=== PATIENT | male | born 1960 | race Caucasian/White ===

== ENCOUNTER → 2018-02-16 | Outpatient (CLI) | payer MEDICARE ==
[~2018-02-16] MED LIST: HYDR-1231 PO; HYDR-3456 PO; HYDR1CAP2 PO; HYDR1TAB PO; IBP800T PO
[2018-02-16 08:20] LABS: HEMOGLOBIN 15.9 G/DL (13.3-17.7); MEAN PLATELET VOLUME 10.6 FL (7.4-10.4); RED BLOOD COUNT 4.74 10^6/uL (4.35-5.85); RED CELL DISTRIBUTION WIDTH 13.4 % (10.0-14.5); WHITE BLOOD COUNT 7.9 10^3/uL (4.3-11.0)
[2018-02-16 08:37] LABS: ALANINE AMINOTRANSFERASE 51 U/L (0-55); ALBUMIN 4.3 GM/DL (3.2-4.5); ALKALINE PHOSPHATASE 60 U/L (40-136); BILIRUBIN,TOTAL 0.6 MG/DL (0.1-1.0); BUN/CREATININE RATIO 15; CALCIUM 9.3 MG/DL (8.5-10.1); CARBON DIOXIDE 22 MMOL/L (21-32); CHLORIDE 106 MMOL/L (98-107); CREATININE SERUM 0.97 MG/DL (0.60-1.30); GFR ESTIMATED > 60; GLUCOSE 99 MG/DL (70-105); POTASSIUM 3.7 MMOL/L (3.6-5.0); SODIUM 141 MMOL/L (135-145); TOTAL PROTEIN 6.5 GM/DL (6.4-8.2)
== END ==
LOC: LAB 08:03
PROVIDERS: ATTEND Family Medicine
DX: M19.90 Unspecified osteoarthritis, unspecified site (principal); R74.8 Abnormal levels of other serum enzymes
CPT/HCPCS: 36415; 80053; 85027

== ENCOUNTER → 2018-03-02 | Outpatient (CLI) | payer MEDICARE ==
--- NOTE | 2018-03-02 19:03 | Diagnostic Imaging Report ---
PROCEDURE: MRI lumbar spine. INDICATION: Chronic low back pain with bilateral leg pain and numbness. COMPARISON: Comparison made with prior examination from 01/28/2012. TECHNIQUE: Multiplanar and multisequence acquisitions were acquired through the lumbar spine without the use of gadolinium. FINDINGS: There is partial lumbarization of the S1 vertebral segment. There is no spondylolysis or spondylolisthesis. No fractures are identified. Conus medullaris is seen at L1 and is normal in appearance. Overall, the patient has congenitally small spinal canal. T12-L1 is unremarkable. L1-2 disc is unremarkable. At L2-3, there is some hypertrophic degenerative facet disease. At L3-4, there is some hypertrophic degenerative facet disease. At L4-5, there is loss of disc height and signal intensity with broad-based annular bulging. There is facet disease and thickening of the ligamentum flavum. There is moderate spinal stenosis and encroachment upon the lateral recess bilaterally, right greater than left. There is moderate bilateral neural foraminal encroachment. At L5-S1, there is some broad-based annular bulging and facet disease. There is mild central spinal stenosis with encroachment upon the lateral recess bilaterally, right greater than left. There is moderate right and mild left neural foraminal encroachment. The abdominal aorta is nonaneurysmal. The kidneys are unremarkable. IMPRESSION: Lower lumbar spondylosis and multilevel degenerative disc disease as described. Findings are exacerbated by congenitally small spinal canal. Dictated by: Dictated on workstation # [id number]
== END ==
LOC: RAD 18:04
PROVIDERS: ATTEND Family Medicine
DX: M48.07 Spinal stenosis, lumbosacral region (principal); M53.87 Other specified dorsopathies, lumbosacral region; M51.27 Other intervertebral disc displacement, lumbosacral region; M99.73 Connective tissue and disc stenosis of intervertebral foramina of lumbar region; M51.36 Other intervertebral disc degeneration, lumbar region
CPT/HCPCS: 72148

== ENCOUNTER → 2018-11-22 | Outpatient (CLI) | payer MEDICARE ==
[2018-11-22 12:21] LABS: HEMOGLOBIN 16.5 G/DL (13.3-17.7); MEAN PLATELET VOLUME 12.1 FL (7.4-10.4); RED CELL DISTRIBUTION WIDTH 13.8 % (10.0-14.5); WHITE BLOOD COUNT 10.7 10^3/uL (4.3-11.0)
[2018-11-22 12:30] LABS: BILIRUBIN,URINE NEGATIVE (NEGATIVE); CLARITY,URINE CLEAR; COLOR,URINE YELLOW; GLUCOSE, URINE (UA) NEGATIVE (NEGATIVE); KETONES,URINE NEGATIVE (NEGATIVE); LEUKOCYTE ESTERASE ,URINE NEGATIVE (NEGATIVE); NITRITE,URINE NEGATIVE (NEGATIVE); PH,URINE 6 (5-9); PROTEIN,URINE NEGATIVE (NEGATIVE); UROBILINOGEN,URINE NORMAL (NORMAL)
[2018-11-22 12:58] LABS: BACTERIA,URINE NEGATIVE /HPF; CALCIUM OXALATE CRYSTALS,UR RARE /LPF
[2018-11-22 13:48] LABS: ALANINE AMINOTRANSFERASE 41 U/L (0-55); ALBUMIN 4.5 GM/DL (3.2-4.5); ALKALINE PHOSPHATASE 77 U/L (40-136); BILIRUBIN,TOTAL 0.4 MG/DL (0.1-1.0); BUN/CREATININE RATIO 13; CALCIUM 9.4 MG/DL (8.5-10.1); CARBON DIOXIDE 22 MMOL/L (21-32); CHLORIDE 106 MMOL/L (98-107); CREATININE SERUM 0.93 MG/DL (0.60-1.30); GFR ESTIMATED > 60; GLUCOSE 89 MG/DL (70-105); POTASSIUM 3.8 MMOL/L (3.6-5.0); SODIUM 142 MMOL/L (135-145); TOTAL PROTEIN 7.4 GM/DL (6.4-8.2)
== END ==
LOC: LAB 06:52
PROVIDERS: ATTEND Family Medicine
DX: N40.0 Benign prostatic hyperplasia without lower urinary tract symptoms (principal); J44.9 Chronic obstructive pulmonary disease, unspecified; R42 Dizziness and giddiness; R53.83 Other fatigue
CPT/HCPCS: 36415; 80053; 81000; 84153; 85027

== ENCOUNTER → 2019-04-17 | Outpatient (CLI) | payer MEDICARE ==
--- NOTE | 2019-04-17 15:59 | Diagnostic Imaging Report ---
INDICATION: Cough and congestion x10 days EXAM: PA and lateral chest FINDINGS: Heart size and pulmonary vascularity are normal. Lungs are clear. There are no effusions or pneumothoraces. IMPRESSION: No acute abnormalities in the chest. Dictated by: Dictated on workstation # [id number]
== END ==
LOC: RAD 14:29
PROVIDERS: ATTEND Family Medicine
DX: R05 Cough (principal); R09.89 Other specified symptoms and signs involving the circulatory and respiratory systems
CPT/HCPCS: 71046

== ENCOUNTER 2019-04-23 09:30 | Outpatient (CLI) | payer MEDICARE ==
[~2019-04-23] VITALS: Ht 185 cm; Wt 95.4 kg
[2019-04-24] MEDS ORDERED: PANT40TA2 PO (15:39)
== END 2019-04-23 10:09 | disposition home or self-care (01) ==
LOC: PREOP 09:30
PROVIDERS: ATTEND Surgery
DX: Z01.818 Encounter for other preprocedural examination (principal)

== ENCOUNTER → 2019-04-24 | Day surgery (SDC) | payer MEDICARE ==
[~2019-04-24] VITALS: Ht 185.5 cm; Wt 95.4 kg
[~2019-04-24] MED LIST changes: +HURRICAINE EXT TUBE (BENZOCAINE) XX PRN; +LACTATED RINGERS 1,000 ML IV ONE; +LACTATED RINGERS 1,000 ML IV STA; +MIDAZOLAM 2 MG/2 ML (VERSED) VIAL ONE; +PANT40TA2 PO; +PROPOFOL INJECTION 50 ML IV ONE; +proPOfol 200 MG/20 ML (DIPRIVAN) VIAL IV ONE
[2019-04-24 12:32] VITALS: BP 128/94
--- NOTE | 2019-04-24 13:58 | Progress Note-Pre Operative ---
Pre-Operative Progress Note H&P Reviewed The H&P was reviewed, patient examined and no changes noted. Date Seen by Provider: Apr 24, 2019 Time Seen by Provider: 13:57 Date H&P Reviewed: Apr 24, 2019 Time H&P Reviewed: 13:57 Pre-Operative Diagnosis: + cologuard, family hx colon cancer and gerd SUSHANT PENA DO Apr 24, 2019 13:58 POS
[2019-04-24 15:15] VITALS: BP 112/71
[2019-04-24 15:20] VITALS: BP 115/72
[2019-04-24 15:25] VITALS: BP 129/73
[2019-04-24 15:30] VITALS: BP 129/73
--- NOTE | 2019-04-24 15:37 | Progress Note-Post Operative ---
Post-Operative Progess Note Surgeon (s)/Smelting Engineer (s) Surgeon SUSHANT PENA DO Smelting Engineer: NA Pre-Operative Diagnosis + cologuard, family hx colon cancer and gerd Post-Operative Diagnosis Small Hiatal Hernia Colon Polyps Procedure & Operative Findings Date of Procedure 04/24/19 Procedure Performed/Findings EGD with biopsies Colonoscopy with hot polypectomy x 4 and snare polypectomy x 7 Anesthesia Type per ACCOUNTING CONSULTANT Estimated Blood Loss Estimated blood loss (mL): None Specimens/Packing Specimens Removed Biopsies of the Antrum, Body of the stomach, Cardia and GE Junction Sigmoid Hot polypectomy x1 Descending Hot Polypectomy x1 Descending snare polypectomy x 2 Splenic flexure snare polypectomy x 1 Transverse snare polypectomy x 1 Transverse hot biopsy polypectomy x 1 Ascending hot biopsy polypectomy x 1 Ascending snare polypectomy x 3 SUSHANT PENA DO Apr 24, 2019 15:37 POS
--- NOTE | 2019-04-24 15:40 | Discharge Inst-Simple/Standard ---
Discharge Inst-Standard Discharge Medications New, Converted or Re-Newed RX: Transmitted to Pharmacy Patient Instructions/Follow Up Plan of Care/Instructions/FU: John 2 weeks Activity as Tolerated: Yes Discharge Diet: Regular Diet SUSHANT PENA DO Apr 24, 2019 15:40 POS
[2019-04-24 15:55] VITALS: BP 118/78
--- NOTE | 2019-04-24 16:18 | Anesthesia-General Post-Op ---
MAC Patient Condition Mental Status/LOC: Same as Preop Cardiovascular: Satisfactory Nausea/Vomiting: Absent Respiratory: Satisfactory Pain: Controlled Complications: Absent Post Op Complications Complications None Follow Up Care/Instructions Patient Instructions None needed. Anesthesiology Discharge Order Discharge Order Patient is doing well, no complaints, stable vital signs, no apparent adverse anesthesia problems. No complications reported per nursing. WANDA KOVACS CRNA Apr 24, 2019 16:18 POS
--- NOTE | 2019-04-25 01:05 | OPERATIVE REPORT ---
DATE OF SERVICE: 04/24/2019 PREOPERATIVE DIAGNOSES: Positive Cologuard test, family history of colon cancer and GERD. POSTOPERATIVE DIAGNOSES: Small hiatal hernia, colon polyps. PROCEDURE: EGD with biopsies, colonoscopy with hot biopsy polypectomy x4 and snare polypectomy x7. SURGEON: Sushant Lopez DO ANESTHESIA: Per DEPUTY SHERIFF BAILIFF. ESTIMATED BLOOD LOSS: None. COMPLICATIONS: None. INDICATIONS: The patient is a 58-year-old male with family history of colon cancer and positive Cologuard test. He also has reflux. He understands risks and benefits of procedures and he wished to proceed with procedures. Consent was signed in the chart. DESCRIPTION OF PROCEDURE: The patient was taken to the endoscopy suite, placed in the left lateral recumbent position. Timeout was performed. Scope was inserted in mouth, down the esophagus, stomach and into the duodenum without difficulty. Scope was inserted in mouth, down the esophagus, stomach and into the duodenum without difficulty. There were no polyps, masses or ulcerations in the duodenum. Scope was slowly retracted back into the stomach where further insufflated. Erythematous changes throughout the entire stomach were present. Biopsy of the antrum, body and cardia were obtained. No polyps, masses or ulcerations. Scope was then retroflexed noting a small hiatal hernia. Scope was returned to its normal position, slowly withdrawn to the distal esophagus, which biopsy of the GE junction was obtained. Scope was then slowly retracted back to completely remove noting no other pathology. Digital rectal exam was performed. There were no palpable polyps, masses or ulcerations. Scope was inserted into the rectum, advanced all the way to cecum with minimal difficulty. Prep was adequate. Scope was then slowly retracted back. There were no polyps, masses or ulcerations in the cecum. In the ascending colon, there were three polyps present, which snare polypectomy was performed. There was another polyp, which hot biopsy polypectomy was performed. Scope was then continued slowly retracted back into the transverse colon, which another polyp was present, in which hot biopsy polypectomy was performed. Another larger polyp was present, which snare polypectomy was performed. One polyp was present in the splenic flexure, which snare polypectomy was performed. Scope was continuously retracted back into the descending colon where two polyps were present and snare polypectomy was performed and on these 2 polyps, another polyp was present in the descending polyp, which hot biopsy polypectomy was performed. Scope was continuously retracted back into the sigmoid colon, which demonstrated another polyp, which hot biopsy polypectomy was performed. Scope was then slowly retracted back into the rectum and inserted and retracted multiple times noting no other pathology and scope was then slowly retracted until completely removed. RECOMMENDATIONS: The patient will follow up in the office in two to three weeks to go over pathology. We will also make sure that he is on Protonix 40 mg daily and await biopsy results. The patient will need repeat colonoscopy in 6 months. If he has any issues before that, will be seen at that time. Job ID: [id number] DocumentID: [id number] Dictated Date: 04/24/2019 15:38:09 Feed Manager Date: 04/25/2019 01:05:08 Dictated By: SUSHANT LOPEZ DO
== END ==
LOC: ENDO 12:10
PROVIDERS: ATTEND Surgery
DX: D12.2 Benign neoplasm of ascending colon (principal); D12.3 Benign neoplasm of transverse colon; D12.4 Benign neoplasm of descending colon; D12.5 Benign neoplasm of sigmoid colon; K44.9 Diaphragmatic hernia without obstruction or gangrene; K29.50 Unspecified chronic gastritis without bleeding; K21.9 Gastro-esophageal reflux disease without esophagitis; J44.9 Chronic obstructive pulmonary disease, unspecified; M06.9 Rheumatoid arthritis, unspecified; F17.210 Nicotine dependence, cigarettes, uncomplicated; Z80.0 Family history of malignant neoplasm of digestive organs
CPT/HCPCS: 88305

== ENCOUNTER 2019-09-04 05:37 | Outpatient (CLI) | payer MEDICARE ==
[~2019-09-04] VITALS: Ht 185 cm; Wt 95.0 kg
[~2019-09-04 05:37] MED LIST changes: -HURRICAINE EXT TUBE (BENZOCAINE) XX PRN; -LACTATED RINGERS 1,000 ML IV ONE; -LACTATED RINGERS 1,000 ML IV STA; -MIDAZOLAM 2 MG/2 ML (VERSED) VIAL ONE; -PROPOFOL INJECTION 50 ML IV ONE; -proPOfol 200 MG/20 ML (DIPRIVAN) VIAL IV ONE
== END 2019-09-04 13:39 | disposition home or self-care (01) ==
LOC: PREOP 05:37
PROVIDERS: ATTEND Surgery
DX: Z01.818 Encounter for other preprocedural examination (principal)

== ENCOUNTER → 2020-05-21 | Outpatient (CLI) | payer MEDICARE ==
[2020-05-21 10:06] LABS: HEMOGLOBIN 16.2 g/dL (13.3-17.7); MEAN PLATELET VOLUME 10.2 fL (9.0-12.2); WHITE BLOOD COUNT 7.2 10^3/uL (4.3-11.0)
[2020-05-21 10:24] LABS: ALANINE AMINOTRANSFERASE 37 U/L (0-55); ALBUMIN 4.3 GM/DL (3.2-4.5); ALKALINE PHOSPHATASE 76 U/L (40-136); BILIRUBIN,TOTAL 0.7 MG/DL (0.1-1.0); BUN/CREATININE RATIO 13; CALCIUM 8.8 MG/DL (8.5-10.1); CARBON DIOXIDE 27 MMOL/L (21-32); CHLORIDE 107 MMOL/L (98-107); CREATININE SERUM 1.12 MG/DL (0.60-1.30); GFR ESTIMATED > 60; GLUCOSE 103 MG/DL (70-105); SODIUM 143 MMOL/L (135-145); TOTAL PROTEIN 6.8 GM/DL (6.4-8.2)
== END ==
LOC: LAB 09:46
PROVIDERS: ATTEND Family Medicine
DX: K92.1 Melena (principal); K21.9 Gastro-esophageal reflux disease without esophagitis; R52 Pain, unspecified; Z72.0 Tobacco use
CPT/HCPCS: 36415; 80053; 85027

== ENCOUNTER 2020-06-20 11:34 | Outpatient (RCR) | payer MEDICARE, MEDICAID | END 2020-09-18 | disposition home or self-care (01) | LOC: LAB 11:34 | PROVIDERS: ATTEND Family Medicine | DX: K92.1 Melena (principal) | CPT/HCPCS: 82274 ==

== ENCOUNTER → 2020-09-16 | Outpatient (CLI) | payer MEDICARE, MEDICAID ==
--- NOTE | 2020-09-16 16:28 | Diagnostic Imaging Report ---
INDICATION: Fall with pain to the left wrist. TIME OF EXAM: 12:10 PM. TECHNIQUE: Three views of the left wrist were obtained. FINDINGS: The distal radius and ulna are intact. The carpus appears intact. No fractures are seen. IMPRESSION: No acute bony abnormality is detected. Dictated by: Dictated on workstation # [id number]
== END ==
LOC: RAD 11:46
PROVIDERS: ATTEND Family Medicine
DX: M25.532 Pain in left wrist (principal)
CPT/HCPCS: 73110

== ENCOUNTER → 2020-10-16 | Outpatient (CLI) | payer MEDICARE, MEDICAID ==
[2020-10-16 11:35] LABS: HEMATOCRIT 45 % (40-54); HEMOGLOBIN 15.4 g/dL (13.3-17.7); MEAN CORPUSCULAR HEMOGLOBIN 33 pg (25-34); MEAN CORPUSCULAR HGB CONC 35 g/dL (32-36); MEAN CORPUSCULAR VOLUME 96 fL (80-99); MEAN PLATELET VOLUME 10.6 fL (9.0-12.2); PLATELET COUNT 172 10^3/uL (130-400); WHITE BLOOD COUNT 7.2 10^3/uL (4.3-11.0)
[2020-10-16 12:04] LABS: ALANINE AMINOTRANSFERASE 31 U/L (0-55); ALKALINE PHOSPHATASE 91 U/L (40-136); BILIRUBIN,TOTAL 0.6 MG/DL (0.1-1.0); BUN/CREATININE RATIO 15; CALCIUM 8.3 MG/DL (8.5-10.1); CARBON DIOXIDE 27 MMOL/L (21-32); CHLORIDE 108 MMOL/L (98-107); CREATININE SERUM 0.81 MG/DL (0.60-1.30); GFR ESTIMATED > 60; GLUCOSE 102 MG/DL (70-105); POTASSIUM 3.8 MMOL/L (3.6-5.0); SODIUM 139 MMOL/L (135-145); TOTAL PROTEIN 6.3 GM/DL (6.4-8.2)
== END ==
LOC: LAB 11:09
PROVIDERS: ATTEND Family Medicine
DX: M54.9 Dorsalgia, unspecified (principal); R63.4 Abnormal weight loss
CPT/HCPCS: 36415; 80053; 84443; 85027

== ENCOUNTER → 2020-10-22 | Outpatient (CLI) | payer MEDICARE, MEDICAID ==
--- NOTE | 2020-10-22 14:45 | Diagnostic Imaging Report ---
EXAMINATION: CT chest without contrast. TECHNIQUE: Multiple contiguous axial images were obtained through the chest without the use of intravenous contrast. All CT scans use one or more of the following dose optimizing techniques: automated exposure control, MA and/or KvP adjustment based on patient size and exam type or iterative reconstruction. HISTORY: Weight loss. COMPARISON: CT chest 06/12/2014. FINDINGS: Thyroid: The thyroid is normal. Mediastinum: Heart size is normal without significant pericardial effusion. Mild aneurysmal dilatation of the ascending thoracic aorta measuring up to 4.0 cm. No suspicious lymphadenopathy. Lungs and airways: There are mild emphysematous changes of the lung apices. No consolidation, pleural effusion, or pneumothorax. There are a few subcentimeter nodules within both lungs which likely represent calcified granulomas. There is no other suspicious pulmonary lesion. The airways are normal. Upper abdomen: Hyperdense sludge or stones within the gallbladder neck and cystic duct. Subphrenic structures are otherwise unremarkable. Musculoskeletal: Degenerative changes of the spine without suspicious osseous lesion or compression fracture. There is a chronic left rib fracture. IMPRESSION: 1. No acute abnormality in the chest. No suspicious pulmonary lesion. 2. Borderline dilatation of the ascending thoracic aorta measuring up to 4.0 cm. 3. Mild emphysema. 4. Gallbladder sludge or stones within the cystic duct and gallbladder neck. Dictated by: Dictated on workstation # [id number]
== END ==
LOC: RAD 11:46
PROVIDERS: ATTEND Family Medicine
DX: J43.9 Emphysema, unspecified (principal); K82.8 Other specified diseases of gallbladder; R63.4 Abnormal weight loss
CPT/HCPCS: 71250

== ENCOUNTER 2020-11-27 05:38 | Outpatient (CLI) | payer MEDICARE, MEDICAID ==
[~2020-11-27] VITALS: Ht 185.4 cm; Wt 90.7 kg
[2020-11-28] MEDS ORDERED: MELO10CA3 PO (09:07)
[2020-11-28] MEDS ORDERED: PANT40TA52 PO (09:07)
== END 2020-12-01 09:19 | disposition home or self-care (01) ==
LOC: PREOP 05:38
PROVIDERS: ATTEND Surgery
DX: Z01.818 Encounter for other preprocedural examination (principal)

== ENCOUNTER 2020-12-04 05:50 | Day surgery (SDC) | payer MEDICARE, MEDICAID ==
[2020-12-04] VITALS (10 sets, daily range): BP systolic 119–169; BP diastolic 67–88
[~2020-12-04] VITALS: Ht 185.4 cm; Wt 90.7 kg
[~2020-12-04 05:50] MED LIST changes: +MELO10CA3 PO; +PANT40TA52 PO
[2020-12-04] MEDS: LACTATED RINGERS 1,000 ML IV PRN ×2 (06:20→09:23)
[2020-12-04] MEDS ORDERED: ONDANSETRON 4 MG/2 ML (SDV) Z0FRAN ONE (06:59)
[2020-12-04] MEDS ORDERED: ROCURONIUM 10 MG/ML 5 ML SYRINGE IV ONE (06:59)
[2020-12-04] MEDS ORDERED: GLYCOPYRROLATE 0.2 MG/ML (ROBINUL) 2 ML VIAL ONE (06:59)
[2020-12-04] MEDS ORDERED: LIDOCAINE PF 2% 5 ML (XYLOCAINE) VIAL ONE (06:59)
[2020-12-04] MEDS ORDERED: MIDAZOLAM 2 MG/2 ML (VERSED) VIAL ONE (06:59)
[2020-12-04] MEDS ORDERED: NEOSTIGMINE 3 MG/3 ML VIAL ONE (06:59)
[2020-12-04] MEDS ORDERED: fentaNYL INJ 100 MCG/2 ML AMP ONE (06:59)
[2020-12-04] MEDS ORDERED: proPOfol 200 MG/20 ML (DIPRIVAN) VIAL IV ONE (06:59)
[2020-12-04] MEDS ORDERED: LIDOCAINE/EPI 1%-1:100,000 (XYLOCAINE) 20ML ONE (07:37)
[2020-12-04] MEDS ORDERED: ceFAZolin 2 GM IV Premixed 50 ML ONE (08:00)
--- NOTE | 2020-12-04 08:04 | Progress Note-Pre Operative ---
Pre-Operative Progress Note H&P Reviewed The H&P was reviewed, patient examined and no changes noted. Date Seen by Provider: Dec 04, 2020 Time Seen by Provider: 07:51 Date H&P Reviewed: Dec 04, 2020 Time H&P Reviewed: 07:51 Pre-Operative Diagnosis: ruq abd pain, cholelithiasis SUSHANT PENA DO Dec 04, 2020 08:04
[2020-12-04] MEDS ORDERED: SEVOFLURANE (ULTANE) 15 ML INHAL SOLN ONE ×2 (09:03→09:04)
--- NOTE | 2020-12-04 09:13 | Progress Note-Post Operative ---
Post-Operative Progess Note Surgeon (s)/Senior Construction Project Manager (s) Surgeon SUSHANT PENA DO Senior Construction Project Manager: Dr. Harris to assist in retraction dissection closure Pre-Operative Diagnosis ruq abd pain, cholelithiasis Post-Operative Diagnosis cirrhotic liver, cholelithiasis chronic cholecystitis Procedure & Operative Findings Date of Procedure 12/04/20 Procedure Performed/Findings PROCEDURE: Laparoscopic cholecystectomy with intraoperative cholangiogram. COMPLICATIONS: None. PROCEDURE: The patient was taken to the operating suite and was prepped and draped in sterile fashion. A surgical pause was performed. Just superior to the umbilicus, a 12 mm incision was made. Dissection was taken down to the fascia, which was then scored and grasped with a Elias and the abdomen was then entered. A 0 Vicryl suture was placed in a nyqhaq-wh-vmael fashion and a Shaikh trocar was placed and secured. Pneumoperitoneum was achieved. A 5mm trochar place in the subxyphoid and 2 in the right upper quadrant. Adhesions to liver and gallbladder were taken down carefully. Liver cirrhotic appearance. The gallbladder was then grasped and elevated. The cystic duct, and cystic artery were then dissected out. Clip was placed on the distal portion of the cystic duct which was then partially transected. An arrow catheter was inserted into the duct. The cholangiogram was then performed. No filing defects and contrast made its way into the duodenum. Catheter removed. Clips were placed on proximal portion of the cystic duct and then the duct was then transected. Clips were placed along the proximal and distal portion of the cystic artery which was then transected. Hook cautery was used to dissect the gallbladder from the gallbladder fossa achieving hemostasis. The gallbladder was placed in an Endobag and removed through the 12 mm trocar site. The abdomen was then reinspected. Copious amounts of irrigation were used to irrigate the abdomen and there were no signs of active bleeding. Hemostasis had been achieved. The 12 mm fascial defect was then closed with 0 Vicryl suture that had been placed in a [id number]-rhcgn fashion. The abdomen was then desufflated, the trocars were removed. The abdomen was then washed and dried. The skin was then closed using 4-0 Monocryl in a subcuticular fashion. The abdomen was washed and dried and Skin Affix was place over incisions. Patient tolerated the procedure well without any complications and was taken to the recovery room in stable condition. Anesthesia Type general Estimated Blood Loss Estimated blood loss (mL): minimal Specimens/Packing Specimens Removed gallbladder SUSHANT PENA DO Dec 04, 2020 09:13
[2020-12-04] MEDS ORDERED: DOCU-143 PO ×2 (09:14→13:14)
[2020-12-04] MEDS ORDERED: ACHD5005 PO ×2 (09:14→13:14)
[2020-12-04] MEDS ORDERED: KETOROLAC 30 MG/ML VIAL ONE (09:16)
--- NOTE | 2020-12-04 09:16 | Discharge Inst-Simple/Standard ---
Discharge Inst-Standard Discharge Medications New, Converted or Re-Newed RX: Transmitted to Pharmacy Patient Instructions/Follow Up Plan of Care/Instructions/FU: 2-3 weeks John Activity as Tolerated: No Discharge Diet: Regular Diet Other Inst to Patient Follow up Appt: Make appointment for 2 weeks. Instructions: No lifting greater than 10 pounds. No strenuous activity. May shower in 24 hours, no tub bath or soaking. Use incentive spirometer at home as directed. No Smoking Skin/Wound Care: You have special glue over incision, it will fall off on it's own. Symptoms to Report: Appetite Changes, Extremity Discoloration, Numbness/Tingling, Swelling Increased, Bleeding Excessive, Eyesight Changes, Pain Increased, Urine Color Change, Constipation(Persistent), Fever over 101 degree F, Pain/Pressure in chest, Urinating Difficulty, Cough Up/Vomit Blood, Heart Beat Irreg/Pounding, Pain/Pressure in jaw, Vaginal Bleeding Increase, Cramps in feet or legs, Lightheadedness, Pain/Pressure in shoulder, Diarrhea(Persistent), Memory Changes Suddenly, Questions/Concerns, Weight gain consecutive days, Dizziness/Fainting, Nausea/Vomiting, Shortness of Breath, Weight gain over 2 pounds. If eyes or skin turn yellow notify physician. If questions or concerns contact your physician Or seek help at emergency department. SUSHANT PENA DO Dec 04, 2020 09:16
[2020-12-04] MEDS ORDERED: HYDROmorphone 2 MG/ML VIAL (DILAUDID) IV ONE (09:30)
[2020-12-04] MEDS ORDERED: ONDANSETRON 4 MG/2 ML (SDV) Z0FRAN IVP PRN (09:30)
--- NOTE | 2020-12-04 09:49 | Diagnostic Imaging Report ---
Indication: Fluoroscopy for intraoperative cholangiogram. Fluoroscopy was provided in the OR during intraoperative cholangiogram. 35 seconds fluoroscopic time was utilized. 119 images were obtained. Images demonstrate contrast being injected via the cystic duct remnant. There is opacification of extra hepatic bile duct which is of normal caliber. No filling defects are seen. There does appear to be some passage of contrast into the duodenum. No definite intrahepatic ductal opacification is seen. IMPRESSION: Fluoroscopy during intraoperative cholangio-gram. Dictated by: Dictated on workstation # [id number]
[2020-12-04] MEDS ORDERED: HYDROcodone/APAP 5 MG/325 MG (LORTAB) TAB PO ONE (10:45)
[2020-12-04] MEDS ORDERED: HYDROcodone/APAP 5 MG/325 MG (LORTAB) TAB ONE (10:45)
--- NOTE | 2020-12-04 10:58 | Anesthesia-General Post-Op ---
General Patient Condition Mental Status/LOC: Same as Preop Cardiovascular: Satisfactory Nausea/Vomiting: Absent Respiratory: Satisfactory Pain: Controlled Complications: Absent Post Op Complications Complications None Follow Up Care/Instructions Patient Instructions None needed. Anesthesia/Patient Condition Patient Condition Patient is doing well, no complaints, stable vital signs, no apparent adverse anesthesia problems. No complications reported per nursing. D/C home per [facility] [place] Criteria: Yes MARICRUZ SLADE CRNA Dec 04, 2020 10:58
== END 2020-12-04 11:45 | disposition home or self-care (01) ==
LOC: SDC 05:50
PROVIDERS: ATTEND Surgery
DX: K80.10 Calculus of gallbladder with chronic cholecystitis without obstruction (principal); K76.0 Fatty (change of) liver, not elsewhere classified; J44.9 Chronic obstructive pulmonary disease, unspecified; K21.9 Gastro-esophageal reflux disease without esophagitis; G43.909 Migraine, unspecified, not intractable, without status migrainosus; F17.210 Nicotine dependence, cigarettes, uncomplicated; Z79.899 Other long term (current) drug therapy
CPT/HCPCS: 76000; 87081

== ENCOUNTER → 2021-01-05 | Outpatient (CLI) | payer MEDICARE, MEDICAID ==
[~2021-01-05] MED LIST changes: +ACHD5005 PO; +DOCU-143 PO
[2021-01-05 11:40] LABS: HEMATOCRIT 48 % (40-54); HEMOGLOBIN 16.2 g/dL (13.3-17.7); MEAN CORPUSCULAR HEMOGLOBIN 33 pg (25-34); MEAN CORPUSCULAR HGB CONC 34 g/dL (32-36); MEAN CORPUSCULAR VOLUME 97 fL (80-99); MEAN PLATELET VOLUME 10.9 fL (9.0-12.2); PLATELET COUNT 165 10^3/uL (130-400); WHITE BLOOD COUNT 8.2 10^3/uL (4.3-11.0)
[2021-01-05 11:57] LABS: ALBUMIN 4.3 GM/DL (3.2-4.5); BILIRUBIN,TOTAL 0.5 MG/DL (0.1-1.0); CALCIUM 8.9 MG/DL (8.5-10.1); CREATININE SERUM 0.84 MG/DL (0.60-1.30); POTASSIUM 3.9 MMOL/L (3.6-5.0)
== END ==
LOC: LAB 11:21
PROVIDERS: ATTEND Family Medicine
DX: I63.9 Cerebral infarction, unspecified (principal)
CPT/HCPCS: 36415; 80053; 85027

== ENCOUNTER → 2021-01-05 | Outpatient (CLI) | payer MEDICARE, MEDICAID ==
--- NOTE | 2021-01-05 15:05 | Diagnostic Imaging Report ---
PROCEDURE: CT head without contrast. TECHNIQUE: Multiple contiguous axial images were obtained through the brain without the use of intravenous contrast. Auto Exposure Controls were utilized during the CT exam to meet ALARA standards for radiation dose reduction. INDICATION: Right eye and mouth drooping. FINDINGS: There is mild prominence of the ventricles and sulci. There is a focal lacunar infarct in the right basal ganglia. There is no hydrocephalus. There is no midline shift. There is no mass, hemorrhage, or extra-axial fluid collection. There is some chronic microvascular ischemic disease. There is a slightly more focal area of encephalomalacia in the left parietal lobe. The calvarium is intact. IMPRESSION: Atrophy and chronic microvascular ischemic disease with focal encephalomalacia in the left parietal lobe and a lacunar infarct in the right basal ganglia. No other acute intracranial abnormality. Dictated by: Dictated on workstation # [id number]
--- NOTE | 2021-01-05 15:46 | Diagnostic Imaging Report ---
PROCEDURE: US carotid duplex, bilateral. TECHNIQUE: Multiple real-time grayscale images were obtained over the carotid arteries in various projections, bilaterally. Additional spectral analysis and color Doppler duplex images were also obtained. INDICATION: Right eye and facial drooping. Smoking history. Examination of the carotid and vertebral arteries shows mild atherosclerotic disease with no significant vessel irregularity or stenosis seen. Maximal stenosis is less than 30%. There is antegrade flow in all vessels. IMPRESSION: Mild disease. No hemodynamically significant abnormality is seen. Parameters based on the consensus panel Douglas-Scale and Doppler ultrasound criteria published April 2003, Radiology, Volume 229. DOPPLER (peak systolic velocity M/S Right Left CCA .43 .46 ICA Proximal .41 .51 ICA Mid .63 .69 ICA Distal .80 1.08 RATIO 1.85 2.34 ECA .44 .56 VERT NOT SEEN NOT SEEN Dictated by: Dictated on workstation # [id number]
== END ==
LOC: RAD 12:50
PROVIDERS: ATTEND Family Medicine
DX: I67.82 Cerebral ischemia (principal); G31.9 Degenerative disease of nervous system, unspecified; G93.89 Other specified disorders of brain; Z87.891 Personal history of nicotine dependence
CPT/HCPCS: 70450; 93880

== ENCOUNTER → 2021-01-14 | Outpatient (CLI) | payer MEDICARE, MEDICAID ==
--- NOTE | 2021-01-14 12:57 | Diagnostic Imaging Report ---
PROCEDURE: MR imaging of the brain without contrast. TECHNIQUE: Multiplanar, multisequence MR imaging of the brain was performed without contrast. INDICATION: Weakness and right side. Right arm numbness. Possible stroke. COMPARISON: CT head without contrast 01/05/2021. FINDINGS: Subacute infarction continues to demonstrate restricted water diffusion in the left parietal lobe. This also demonstrates some T1 hyperintensity likely representing cortical laminar necrosis although small amount of subacute hemorrhage cannot be excluded. Chronic lacunar infarcts in the right basal ganglia and deep white matter of both frontal lobes. Moderate generalized parenchymal volume loss. Normal morphology including the major midline structures, sella, posterior fossa and cerebellar pontine angle. Normal intracranial flow voids. No hydrocephalus or extra-axial fluid collections. The orbits are negative. Paranasal sinuses and mastoids are clear. Normal bone marrow signal. IMPRESSION: 1. Subacute infarction in the left parietal lobe. T1 hyperintensity associated with this infarction is likely due to cortical laminar necrosis although small amount of hemorrhagic conversion cannot be entirely excluded. There is no mass effect or other evidence of intracranial hemorrhage. 2. Chronic lacunar infarcts in the right basal ganglia and deep white matter of both frontal lobes. Dictated by: Dictated on workstation # [id number]
== END ==
LOC: RAD 11:00
PROVIDERS: ATTEND Family Medicine
DX: I63.9 Cerebral infarction, unspecified (principal)
CPT/HCPCS: 70551

== ENCOUNTER 2021-03-16 07:19 | Emergency (ER) | payer MEDICARE, MEDICAID ==
[~2021-03-16] VITALS: Ht 185.5 cm; Wt 90.7 kg
[2021-03-16] MEDS ORDERED: KETOROLAC 30 MG/ML VIAL IVP STA (07:32)
[2021-03-16 07:38] LABS: BASOPHILS # (AUTO) 0.1 10^3/uL (0.0-0.1); BASOPHILS % (AUTO) 1 % (0-10); EOSINOPHILS # (AUTO) 0.1 10^3/uL (0.0-0.3); EOSINOPHILS % (AUTO) 0 % (0-10); HEMATOCRIT 49 % (40-54); HEMOGLOBIN 16.7 g/dL (13.3-17.7); LYMPHOCYTES # (AUTO) 1.5 10^3/uL (1.0-4.0); LYMPHOCYTES % (AUTO) 11 % (12-44); MEAN CORPUSCULAR HEMOGLOBIN 34 pg (25-34); MEAN CORPUSCULAR HGB CONC 34 g/dL (32-36); MEAN CORPUSCULAR VOLUME 98 fL (80-99); MEAN PLATELET VOLUME 10.3 fL (9.0-12.2); MONOCYTES # (AUTO) 0.8 10^3/uL (0.0-1.0); MONOCYTES % (AUTO) 6 % (0-12); NEUTROPHILS % (AUTO) 82 % (42-75); PLATELET COUNT 209 10^3/uL (130-400); WHITE BLOOD COUNT 13.4 10^3/uL (4.3-11.0)
[2021-03-16] MEDS ORDERED: LACTATED RINGERS 1,000 ML IV ONE ×3 (07:45→08:30)
[2021-03-16] MEDS ORDERED: ONDANSETRON 4 MG/2 ML (SDV) Z0FRAN IVP ONE (07:45)
[2021-03-16 07:48] LABS: ALBUMIN 4.6 GM/DL (3.2-4.5); CHLORIDE 105 MMOL/L (98-107); POTASSIUM 3.9 MMOL/L (3.6-5.0); SODIUM 142 MMOL/L (135-145)
[2021-03-16 07:49] LABS: AMYLASE 82 U/L (25-125)
[2021-03-16 07:50] LABS: CALCIUM 9.7 MG/DL (8.5-10.1)
[2021-03-16 07:51] LABS: GLUCOSE 140 MG/DL (70-105); TOTAL PROTEIN 7.4 GM/DL (6.4-8.2)
[2021-03-16 07:52] LABS: CARBON DIOXIDE 22 MMOL/L (21-32)
[2021-03-16 07:53] LABS: BILIRUBIN,TOTAL 0.6 MG/DL (0.1-1.0)
--- NOTE | 2021-03-16 07:53 | ED Abdominal Pain ---
General Chief Complaint: Abdominal/GI Problems Stated Complaint: ABD,LOWER BACK PAIN Nursing Triage Note: PT AMB TO RM 6 WITH COMPLAINT OF LEFT SIDED PAIN. STARTED LAST NIGHT. STATES HAS HX OF KIDNEY STONES. Source of Information: Patient History of Present Illness Date Seen by Provider: Mar 16, 2021 Time Seen by Provider: 07:27 Initial Comments PT ARRIVES VIA POV FROM HOME C/O LEFT FLANK PAIN--BEGAN SOMETIME LAST NIGHT C/O NAUSEA AND VOMITING NO FEVER HAS NOT BEEN ABLE TO VOID SINCE SOMETIME LAST EVENING HAS HISTORY OF KIDNEY STONE AND THIS IS THE SAME, DID NOT REQUIRE SURGERY STATES HE DID FOLLOW UP WITH UROLOGIST AFTER THAT, BUT NOT SINCE PT HAD A STROKE APPROXIMATELY 1 1/2 MONTHS AGO, WITH RESIDUAL RIGHT ARM/HAND WEAKNESS, AND RIGHT FACIAL DROOP--RIGHT EYELID REMAINS CLOSED PT IS NOT ON ASPIRIN OR ANY BLOOD THINNERS PT HAS NOT TAKEN ANYTHING FOR PAIN PCP: DR. KHALIL Allergies and Home Medications Allergies Coded Allergies: aspirin (Verified Allergy, Mild, N/V, 12/01/20) Patient Home Medication List Home Medication List Reviewed: Yes Docusate Sodium (Colace) 100 Mg Capsule, 100 MG PO BID Prescribed by: SUSHANT PENA on 12/04/20 1314 Hydrocodone Bit/Acetaminophen (HYDROcodone/APAP 7.5/325 TAB) 1 Ea Tablet, 1 EA PO Q4-6 PRN for PAIN Prescribed by: MYRANDA HERZOG on 03/16/21 0821 Hydrocodone/Acetaminophen (Hydrocodone-Acetamin 5-325 mg) 1 Each Tablet, 1 EACH PO Q4H PRN for PAIN-MODERATE (5-7) Prescribed by: SUSHANT PENA on 12/04/20 1315 Ketorolac Tromethamine (Ketorolac Tromethamine) 10 Mg Tablet, 10 MG PO Q6H Prescribed by: MYRANDA HERZOG on 03/16/21 0821 Ondansetron (Ondansetron Odt) 8 Mg Tab.rapdis, 8 MG PO Q6H Prescribed by: MYRANDA HERZOG on 03/16/21 08 Pantoprazole Sodium (Pantoprazole Sodium) 40 Mg Tablet.dr, 40 MG PO DAILY, (Reported) Entered as Reported by: ANMOL CARY on 11/28/20 0907 Tamsulosin HCl (Flomax) 0.4 Mg Cap, 0.4 MG PO DAILY Prescribed by: MYRANDA HERZOG on 03/16/21 0821 Review of Systems Review of Systems Constitutional: no symptoms reported Respiratory: No Symptoms Reported Cardiovascular: No Symptoms Reported Gastrointestinal: See HPI, Abdominal Pain, Nausea Genitourinary: See HPI, Flank Pain Musculoskeletal: see HPI, back pain Skin: no symptoms reported Psychiatric/Neurological: No Symptoms Reported Endocrine: No Symptoms Reported Hematologic/Lymphatic: No Symptoms Reported Past Slgvlhn-Moisex-Ifnuca Hx Patient Social History Tobacco Use?: Yes Tobacco type used: Cigarettes Smoking Status: Current Everyday Smoker Substance use?: Yes Alcohol Use?: Yes Immunizations Up To Date Tetanus Booster (TDap): Unknown PED Vaccines UTD: No Seasonal Allergies Seasonal Allergies: No Past Medical History Surgery/Hospitalization HX: CHOLECYSTECTOMY 12/04/[address] PENA LEFT CHEST TUBE 10/2010 SECONDARY TO TRAUMA BILATERAL CARPAL TUNNEL SURGERY X 2 CERVICAL SPINE SURGERY FINGER SURGERY COLONOSCOPIES Surgeries: Yes (BILAT CARPAL TUNNEL X2, NECK, FINGER, COLONOSCOPIES) Gallbladder, Orthopedic Respiratory: Yes (LEFT CHEST TUBE 2010 SECONDARY TO TRAUMA) Currently Using CPAP: No Currently Using BIPAP: No Cardiac: No Neurological: Yes (? 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) Headaches /Migraines, Neuropathy Reproductive Disorders: No Sexually Transmitted Disease: No HIV/AIDS: No Genitourinary: No Gastrointestinal: Yes (S/P CHOLECYSTECTOMY) Gastroesophageal Reflux, Chronic Constipation, Gall Bladder Disease Musculoskeletal: Yes (CHRONIC NECK/ BACK PAIN; HIP AND LEG PAIN; SHOULDER PAIN; L FOOT FX;GWEN CT) Arthritis Endocrine: No HEENT: No Loss of Vision: Denies Hearing Impairment: Denies Cancer: No Psychosocial: Yes (POLYSUBSTANCE ABUSE) Integumentary: No Blood Disorders: No Adverse Reaction/Blood Tranf: No (N/A) Family Medical History SOCIAL HISTORY: -SMOKES 3 PPD -ETOH--HEAVY/DAILY USE--CLAIMS NO RECENT USE -DRUGS--+ IV METH, COCAINE, HEROIN, ALSO THC, RX PILLS Physical Exam Vital Signs Vital Signs - First Documented 03/16/21 07:25 Temp 35.9 Pulse 62 Resp 17 B/P (MAP) 185/85 (118) Pulse Ox 99 O2 Delivery Room Air Capillary Refill : Less Than 3 Seconds Height/Weight/BMI Height: 6'1" Weight: 220lbs. oz. 99.245221ge; 26.00 BMI Method:Stated General Appearance: no apparent distress HEENT: other (RIGHT FACIAL DROOP AND RIGHT EYE REMAINS CLOSED) Neck: normal inspection Respiratory: normal breath sounds Cardiovascular: regular rate, rhythm, no murmur Gastrointestinal: normal bowel sounds, soft, no organomegaly, tenderness (LLQ AND LEFT FLANK MILD TENDERNESS) Extremities: normal inspection, other (SCARRING IN AC SPACES) Back: no vertebral tenderness, CVA tenderness (L) Neurologic/Psychiatric: alert, oriented x 3, other (RIGHT FACIAL DROOP WITH RIGHT EYE CLOSED, AND MILD WEAKNESS OF RIGHT HAND/ARM) Skin: normal color, warm/dry; No rash; tattoos/piercings (MULTIPLE TATTOOS) Progress/Results/Core Measures Results/Orders Lab Results Laboratory Tests Test 03/16/21 07:32 03/16/21 09:08 Range/Units White Blood Count 13.4 H 4.3-11.0 10^3/uL Red Blood Count 4.98 4.30-5.52 10^6/uL Hemoglobin 16.7 13.3-17.7 g/dL Hematocrit 49 40-54 % Mean Corpuscular Volume 98 80-99 fL Mean Corpuscular Hemoglobin 34 25-34 pg Mean Corpuscular Hemoglobin Concent 34 32-36 g/dL Red Cell Distribution Width 13.5 10.0-14.5 % Platelet Count 209 130-400 10^3/uL Mean Platelet Volume 10.3 9.0-12.2 fL Immature Granulocyte % (Auto) 1 % Neutrophils (%) (Auto) 82 H 42-75 % Lymphocytes (%) (Auto) 11 L 12-44 % Monocytes (%) (Auto) 6 0-12 % Eosinophils (%) (Auto) 0 0-10 % Basophils (%) (Auto) 1 0-10 % Neutrophils # (Auto) 11.0 H 1.8-7.8 10^3/uL Lymphocytes # (Auto) 1.5 1.0-4.0 10^3/uL Monocytes # (Auto) 0.8 0.0-1.0 10^3/uL Eosinophils # (Auto) 0.1 0.0-0.3 10^3/uL Basophils # (Auto) 0.1 0.0-0.1 10^3/uL Immature Granulocyte # (Auto) 0.1 0.0-0.1 10^3/uL Sodium Level 142 135-145 MMOL/L Potassium Level 3.9 3.6-5.0 MMOL/L Chloride Level 105 98-107 MMOL/L Carbon Dioxide Level 22 21-32 MMOL/L Anion Gap 15 H 5-14 MMOL/L Blood Urea Nitrogen 16 7-18 MG/DL Creatinine 1.18 0.60-1.30 MG/DL Estimat Glomerular Filtration Rate 63 BUN/Creatinine Ratio 14 Glucose Level 140 H 70-105 MG/DL Calcium Level 9.7 8.5-10.1 MG/DL Corrected Calcium 8.5-10.1 MG/DL Total Bilirubin 0.6 0.1-1.0 MG/DL Aspartate Amino Transf (AST/SGOT) 43 H 5-34 U/L Alanine Aminotransferase (ALT/SGPT) 59 H 0-55 U/L Alkaline Phosphatase 111 40-136 U/L Total Protein 7.4 6.4-8.2 GM/DL Albumin 4.6 H 3.2-4.5 GM/DL Amylase Level 82 25-125 U/L Lipase 41 8-78 U/L Serum Alcohol < 10 <10 MG/DL Urine Color YELLOW Urine Clarity CLEAR Urine pH 6.0 5-9 Urine Specific [place] >=1.030 1.016-1.022 Urine Protein NEGATIVE NEGATIVE Urine Glucose (UA) NEGATIVE NEGATIVE Urine Ketones NEGATIVE NEGATIVE Urine Nitrite NEGATIVE NEGATIVE Urine Bilirubin NEGATIVE NEGATIVE Urine Urobilinogen 0.2 < = 1.0 MG/DL Urine Leukocyte Esterase NEGATIVE NEGATIVE Urine RBC (Auto) TRACE-L H NEGATIVE Urine RBC 5-10 H /HPF Urine WBC NONE /HPF Urine Squamous Epithelial Cells NONE /HPF Urine Crystals NONE /LPF Urine Bacteria NEGATIVE /HPF Urine Casts NONE /LPF Urine Mucus NEGATIVE /LPF Urine Culture Indicated NO Urine Opiates Screen NEGATIVE NEGATIVE Urine Oxycodone Screen NEGATIVE NEGATIVE Urine Methadone Screen NEGATIVE NEGATIVE Urine Propoxyphene Screen NEGATIVE NEGATIVE Urine Barbiturates Screen NEGATIVE NEGATIVE Ur Tricyclic Antidepressants Screen NEGATIVE NEGATIVE Urine Phencyclidine Screen NEGATIVE NEGATIVE Urine Amphetamines Screen NEGATIVE NEGATIVE Urine Methamphetamines Screen NEGATIVE NEGATIVE Urine Benzodiazepines Screen NEGATIVE NEGATIVE Urine Cocaine Screen NEGATIVE NEGATIVE Urine Cannabinoids Screen POSITIVE H NEGATIVE My Orders Orders - MYRANDA HERZOG DO Ct Abd/Pelvis Wo(Kidney Stone) (03/16/21 07:32) Amylase (03/16/21 07:32) Cbc With Automated Diff (03/16/21 07:32) Comprehensive Metabolic Panel (03/16/21 07:32) Lipase (03/16/21 07:32) Urinalysis (03/16/21 07:32) Ed Iv/Invasive Line Start (03/16/21 07:32) Abdomen/Kub 1[place] (03/16/21 07:32) Ed Iv/Invasive Line Start (03/16/21 07:32) Lactated Ringers (Lr 1000 Ml Iv Solution (03/16/21 07:45) Ondansetron Injection (Zofran Injectio (03/16/21 07:45) Ketorolac Injection (Toradol Injection) (03/16/21 07:32) Alcohol (03/16/21 07:53) Drug Screen Stat (Urine) (03/16/21 07:53) Tamsulosin Capsule (Flomax Capsule) (03/16/21 08:15) Fentanyl Inj (Sublimaze Injection) (03/16/21 08:16) Ed Iv/Invasive Line Start (03/16/21 08:24) Lactated Ringers (Lr 1000 Ml Iv Solution (03/16/21 08:30) Lactated Ringers (Lr 1000 Ml Iv Solution (03/16/21 08:26) Medications Given in ED Current Medications Medications Dose Ordered Sig/[place] Route Start Time Stop Time Status Last Admin Dose Admin Lactated Ringer's 1,000 ml @ 0 mls/hr Q0M ONCE IV 03/16/21 07:45 03/16/21 07:46 DC 03/16/21 07:39 0 MLS/HR Lactated Ringer's 1,000 ml @ 0 mls/hr Q0M ONCE IV 03/16/21 08:30 03/16/21 08:31 DC 03/16/21 08:27 0 MLS/HR Ondansetron HCl 4 mg ONCE ONCE IVP 03/16/21 07:45 03/16/21 07:46 DC 03/16/21 07:39 4 MG Vital Signs/I&O 03/16/21 07:25 Temp 35.9 Pulse 62 Resp 17 B/P (MAP) 185/85 (118) Pulse Ox 99 O2 Delivery Room Air Blood Pressure Mean: 118 Progress Progress Note : Progress Note GIVEN IV FLUIDS, TORADOL, ZOFRAN, FENTANYL AND FLOMAX SYMPTOMS MUCH IMPROVED AT DISMISSAL Diagnostic Imaging Comments KUB--[place] RADIOLOGIST [place] AT [address] earlier this same date. A faintly visualized 2 to 3 mm calcification of the left hemipelvis believed to correspond to the stone in the distal left ureter seen at CT. No additional opaque stone disease. The bowel gas pattern normal. There are degenerative changes chronic. IMPRESSION: Faint visualization of a distal left ureteral stone radiographically, no other abnormality. CT ABDOMEN/PELVIS--PER RADIOLOGIST REPORT AT 0835 It is compared with CT chest and abdomen performed 06/12/2014. A 2.9 mm obstructing stone in the distal left ureter is less than 1 cm from the ureterovesical junction and results in mild to moderate upstream left-sided hydroureteronephrosis with moderate left perinephric and periureteric stranding. No defined fluid collection no additional opaque urinary tract calculi. The gallbladder surgically absent. Small hypodensity is developed in the left hepatic lobe measuring about 1.5 cm in diameter. This is new from the comparison CT of 2014 but is of uncertain etiology. Follow-up of mild multiphasic hepatic protocol CT recommended for its further characterization. Pancreas and spleen are normal. There is mild infrarenal aortic atherosclerotic ectasia is a new finding dilating to 2.7 cm, unruptured. There is no small or large bowel obstruction the appendix is normal. There is no diverticulitis. The unopacified urinary bladder normal. No ascites, abscess, hematoma or acute fluid collection. IMPRESSION: 1. A 2.9 mm stone distal left ureter results in mild to moderate upstream left hydroureteronephrosis with perinephric and periureteric stranding, no additional opaque urolithiasis. 2. Small mass is developed in the left hepatic lobe new from 2015 of uncertain etiology. Further characterization with a hepatic protocol postcontrast enhanced imaging recommended. 3. Infrarenal aortic atherosclerotic ectasia 2.7 cm unruptured, consider annual sonographic followup to exclude formation of significant aneurysm. Reviewed: Reviewed by Me Departure Impression Primary Impression: Calculus of distal left ureter Additional Impressions: Liver mass Abdominal aortic ectasia Marijuana use Disposition: HOME, SELF-CARE Condition: Improved Departure-Patient Inst. Referrals: FANNIE KHALIL ELIAS A MD Patient Instructions: Kidney Stones in Adults, How to Strain Your Urine Add. Discharge Instructions: STRAIN ALL URINE--RETURN ANY STONES TO DR. RAYA'S OFFICE LOTS OF CLEAR LIQUIDS FOLLOW UP WITH DR. RAYA THIS WEEK FOR FURTHER CARE. CALL TODAY TO SCHEDULE FOLLOW UP APPOINTMENT FOLLOW UP WITH DR. KHALIL FOR FURTHER EVALUATION OF LIVER MASS AND ABDOMINAL AORTA ABNORMALITY. CALL TODAY TO SCHEDULE FOLLOW UP APPOINTMENT RETURN TO ER IF WORSE All discharge instructions reviewed with patient and/or family. Voiced understanding. Scripts Ondansetron (Ondansetron Odt) 8 Mg Tab.rapdis 8 MG PO Q6H, #10 TAB Prov: MYRANDA HERZOG DO 03/16/21 Tamsulosin HCl (Flomax) 0.4 Mg Cap 0.4 MG PO DAILY, #10 CAP Prov: MYRANDA HERZOG DO 03/16/21 Ketorolac Tromethamine (Ketorolac Tromethamine) 10 Mg Tablet 10 MG PO Q6H for Pain, #15 TAB Prov: MYRANDA HERZOG DO 03/16/21 Hydrocodone Bit/Acetaminophen (HYDROcodone/APAP 7.5/325 TAB) 1 Ea Tablet 1 EA PO Q4-6 PRN for PAIN, #20 TAB Prov: MYRANDA HERZOG DO 03/16/21 MYRANDA HERZOG DO Mar 16, 2021 07:52
[2021-03-16 07:54] LABS: ALKALINE PHOSPHATASE 111 U/L (40-136); CREATININE SERUM 1.18 MG/DL (0.60-1.30); GFR ESTIMATED 63
[2021-03-16 07:55] LABS: BUN/CREATININE RATIO 14
[2021-03-16 07:57] LABS: ALANINE AMINOTRANSFERASE 59 U/L (0-55)
[2021-03-16 07:58] LABS: LIPASE 41 U/L (8-78)
[2021-03-16] MEDS ORDERED: TAMSULOSIN 0.4 MG (FLOMAX) CAP PO SCH (08:15)
[2021-03-16] MEDS ORDERED: fentaNYL INJ 100 MCG/2 ML AMP IVP STA (08:16)
[2021-03-16] MEDS ORDERED: TMSL.4C PO (08:21)
[2021-03-16] MEDS ORDERED: HYDR-34 PO (08:21)
[2021-03-16] MEDS ORDERED: KETO10TA PO (08:21)
[2021-03-16] MEDS ORDERED: ONDA8TAB13 PO (08:21)
--- NOTE | 2021-03-16 08:33 | Diagnostic Imaging Report ---
PROCEDURE: CT urinary tract, rule out kidney stone. TECHNIQUE: Multiple contiguous axial images were obtained through the abdomen and pelvis without the use of intravenous contrast. Auto Exposure Controls were utilized during the CT exam to meet ALARA standards for radiation dose reduction. INDICATION: Left flank pain, history of nephrolithiasis. It is compared with CT chest and abdomen performed 06/12/2014. A 2.9 mm obstructing stone in the distal left ureter is less than 1 cm from the ureterovesical junction and results in mild to moderate upstream left-sided hydroureteronephrosis with moderate left perinephric and periureteric stranding. No defined fluid collection no additional opaque urinary tract calculi. The gallbladder surgically absent. Small hypodensity is developed in the left hepatic lobe measuring about 1.5 cm in diameter. This is new from the comparison CT of 2014 but is of uncertain etiology. Follow-up of mild multiphasic hepatic protocol CT recommended for its further characterization. Pancreas and spleen are normal. There is mild infrarenal aortic atherosclerotic ectasia is a new finding dilating to 2.7 cm, unruptured. There is no small or large bowel obstruction the appendix is normal. There is no diverticulitis. The unopacified urinary bladder normal. No ascites, abscess, hematoma or acute fluid collection. IMPRESSION: 1. A 2.9 mm stone distal left ureter results in mild to moderate upstream left hydroureteronephrosis with perinephric and periureteric stranding, no additional opaque urolithiasis. 2. Small mass is developed in the left hepatic lobe new from 2015 of uncertain etiology. Further characterization with a hepatic protocol postcontrast enhanced imaging recommended. 3. Infrarenal aortic atherosclerotic ectasia 2.7 cm unruptured, consider annual sonographic followup to exclude formation of significant aneurysm. Dictated by: Dictated on workstation # [id number]
--- NOTE | 2021-03-16 08:36 | Diagnostic Imaging Report ---
INDICATION: Left flank pain. Correlate with CT earlier this same date. A faintly visualized 2 to 3 mm calcification of the left hemipelvis believed to correspond to the stone in the distal left ureter seen at CT. No additional opaque stone disease. The bowel gas pattern normal. There are degenerative changes chronic. IMPRESSION: Faint visualization of a distal left ureteral stone radiographically, no other abnormality. Dictated by: Dictated on workstation # [id number]
[2021-03-16 09:15] LABS: BILIRUBIN,URINE NEGATIVE (NEGATIVE); CLARITY,URINE CLEAR; COLOR,URINE YELLOW; GLUCOSE, URINE (UA) NEGATIVE (NEGATIVE); KETONES,URINE NEGATIVE (NEGATIVE); LEUKOCYTE ESTERASE ,URINE NEGATIVE (NEGATIVE); NITRITE,URINE NEGATIVE (NEGATIVE); PROTEIN,URINE NEGATIVE (NEGATIVE)
[2021-03-16 09:22] LABS: BACTERIA,URINE NEGATIVE /HPF
[2021-03-16 09:34] LABS: AMPHETAMINE SCREEN, URINE NEGATIVE (NEGATIVE); BARBITURATE SCREEN URINE NEGATIVE (NEGATIVE); BENZODIAZEPINES SCREEN URINE NEGATIVE (NEGATIVE); CANNABINOID SCREEN, URINE POSITIVE (NEGATIVE); COCAINE SCREEN URINE NEGATIVE (NEGATIVE); METHADONE STAT NEGATIVE (NEGATIVE); METHAMPHETAMINE SCREEN URINE S NEGATIVE (NEGATIVE); OPIATE SCREEN URINE NEGATIVE (NEGATIVE); OXYCODONE STAT NEGATIVE (NEGATIVE); PROPOXYPHENE STAT NEGATIVE (NEGATIVE); TRICYCLIC ANTIDEPRESSANTS SCRE NEGATIVE (NEGATIVE)
[2021-03-16 09:37] VITALS: BP 123/76
== END 2021-03-16 09:37 | disposition home or self-care (01) ==
LOC: EDUNIT# 07:19 → ER 07:20
DX: N13.2 Hydronephrosis with renal and ureteral calculous obstruction (principal); R16.0 Hepatomegaly, not elsewhere classified; I77.811 Abdominal aortic ectasia; F12.90 Cannabis use, unspecified, uncomplicated; K21.9 Gastro-esophageal reflux disease without esophagitis; G89.29 Other chronic pain; M54.9 Dorsalgia, unspecified; M54.2 Cervicalgia; F17.210 Nicotine dependence, cigarettes, uncomplicated; Z79.899 Other long term (current) drug therapy; Z79.891 Long term (current) use of opiate analgesic
CPT/HCPCS: 74018; 74176; 80053; 80306; 81000; 82150; 83690; 85025; 99284; G0480; 36415; 80320

== ENCOUNTER → 2021-03-24 | Outpatient (CLI) | payer MEDICARE, MEDICAID ==
[~2021-03-24] MED LIST changes: +HYDR-34 PO; +KETO10TA PO; +ONDA8TAB13 PO; +TMSL.4C PO
[2021-03-24 11:33] LABS: CREATININE SERUM 0.9 MG/DL (0.60-1.30)
== END ==
LOC: LAB 10:54
PROVIDERS: ATTEND Family Medicine
DX: N28.9 Disorder of kidney and ureter, unspecified (principal)
CPT/HCPCS: 36415; 82565; 84520

== ENCOUNTER → 2021-03-24 | Outpatient (CLI) | payer MEDICARE, MEDICAID ==
[~2021-03-24] MED LIST changes: +CATHETER FLUSH 10 ML SYR IV PRN; +HOLD METFORMIN - RECEIVED CONTRAST 20 ML VIAL IV SCH; +IOHEXOL 350 MG/ML 100 ML (OMNIPAQUE 350) VIAL IV ONE; +NS 100 ML (IVPB) BAG IV ONE
--- NOTE | 2021-03-24 16:10 | Diagnostic Imaging Report ---
PROCEDURE: CT abdomen and pelvis with and without contrast. TECHNIQUE: Precontrast acquisitions were acquired through the abdomen and pelvis. Multiple contiguous axial images were obtained through the abdomen and pelvis after the administration of intravenous contrast. Auto Exposure Controls were utilized during the CT exam to meet ALARA standards for radiation dose reduction. INDICATION: Liver mass 03/16/2021, 06/12/2014. FINDINGS: Again seen is a low-density lesion within the left hepatic lobe of the liver which is unchanged in size, shape and configuration. The lesion does not appear to enhance on the arterial phase, therefore it is doubtful this is a metastatic or malignant lesion. The lesion becomes iso-dense to surrounding liver parenchyma on the portal venous phase. The remainder of the liver, vascular structures, bowel and solid organs are unremarkable. Urinary bladder is intact. Left-sided hydronephrosis has resolved. IMPRESSION: Indeterminant left hepatic lobe liver lesion. No avid enhancement is seen on early phase imaging that would indicate neoplasm. A low density solitary metastatic lesion or atypical hemangioma is a differential possibility. Ultrasound is recommended for additional evaluation. If ultrasound is inconclusive, a three-phase MRI may be obtained. Dictated by: Dictated on workstation # [id number]
== END ==
LOC: RAD 15:02
PROVIDERS: ATTEND Family Medicine
DX: R16.0 Hepatomegaly, not elsewhere classified (principal)
CPT/HCPCS: 74178

== ENCOUNTER 2021-03-25 09:26 | Outpatient (RCR) | payer MEDICARE, MEDICAID ==
[~2021-03-25 09:26] MED LIST changes: -CATHETER FLUSH 10 ML SYR IV PRN; -HOLD METFORMIN - RECEIVED CONTRAST 20 ML VIAL IV SCH; -IOHEXOL 350 MG/ML 100 ML (OMNIPAQUE 350) VIAL IV ONE; -NS 100 ML (IVPB) BAG IV ONE
== END 2021-03-25 12:45 | disposition home or self-care (01) ==
PROVIDERS: ATTEND Family Medicine
DX: I69.398 Other sequelae of cerebral infarction (principal); I69.351 Hemiplegia and hemiparesis following cerebral infarction affecting right dominant side; R26.89 Other abnormalities of gait and mobility; J43.9 Emphysema, unspecified; F17.210 Nicotine dependence, cigarettes, uncomplicated; Z98.1 Arthrodesis status

== ENCOUNTER → 2021-03-26 | Outpatient (CLI) | payer MEDICARE, MEDICAID ==
--- NOTE | 2021-03-26 13:43 | Diagnostic Imaging Report ---
EXAMINATION: Abdomen 1 view HISTORY: Left ureteral calculus COMPARISON: 03/16/2021 FINDINGS: There is a moderate amount of gas and stool throughout the colon. Nonobstructive bowel gas pattern. Stable appearance of a 0.3 cm radiopacity overlying the distal left pelvis likely within the left ureter. Right upper quadrant cholecystectomy clips are present. The osseous structures are intact. IMPRESSION: Stable 0.3 cm radiopacity within the pelvis, likely left ureteral calculus. Dictated by: Dictated on workstation # [id number]
== END ==
LOC: RAD 11:57
PROVIDERS: ATTEND Urology
DX: N20.1 Calculus of ureter (principal)
CPT/HCPCS: 74018

== ENCOUNTER → 2021-03-27 | Outpatient (CLI) | payer MEDICARE, MEDICAID ==
--- NOTE | 2021-03-27 09:31 | Diagnostic Imaging Report ---
PROCEDURE: US Hepatic (Liver). TECHNIQUE: Multiple real-time grayscale images were obtained over the right upper quadrant in various projections. INDICATION: Liver mass noted on recent CT. CORRELATION is made with CT study from 03/24/2021. The liver is enlarged at 23 cm. There is a hypoechoic mass in the left lobe of the liver measuring 1.9 x 1.3 x 1.7 cm. No internal vascularity is seen. There is also a mass in the right lobe measuring 1.6 x 1.4 x 1.4 cm. No internal vascularity is seen. This is hypoechoic as well. Gallbladder is surgically absent. There is no biliary ductal dilatation. The pancreas is unremarkable. Aorta is ectatic but nonaneurysmal. Right kidney is without calculi or hydronephrosis. There is no ascites. IMPRESSION: There are 2 solid-appearing masses within the liver which could not be characterized as hemangiomas. Dedicated liver MRI would be recommended for further characterization. Dictated by: Dictated on workstation # [id number]
== END ==
PROVIDERS: ATTEND Family Medicine
DX: R16.0 Hepatomegaly, not elsewhere classified (principal)
CPT/HCPCS: 76705

== ENCOUNTER → 2021-04-02 | Outpatient (CLI) | payer MEDICARE, MEDICAID ==
--- NOTE | 2021-04-02 12:55 | Diagnostic Imaging Report ---
PROCEDURE: CT urinary tract, rule out kidney stone. TECHNIQUE: Multiple contiguous axial images were obtained through the abdomen and pelvis without the use of intravenous contrast. Auto Exposure Controls were utilized during the CT exam to meet ALARA standards for radiation dose reduction. INDICATION: Left ureteral stone. FINDINGS: The previous CT abdomen/pelvis exam of 03/16/2021 noted partial obstruction of the left collecting system due to a 2.9 mm calculus in the distal left ureter. There was dilatation of both the left ureter and left renal pelvis and there was considerable perinephric stranding about the left kidney. The subsequent CT abdomen/pelvis exam of 03/24/2021 noted that the calculus was still present but that the hydronephrosis of the left kidney and the perinephric stranding had essentially resolved. On this exam, the calcification in the distal left ureter seen previously is again visualized and does not appear to have changed significantly in position or appearance. The left renal pelvis is perhaps slightly dilated but the left ureter is generally unremarkable. The right kidney is within normal limits. The previous study also showed a 1.3 cm rounded area of low density in the left lobe of the liver. There was a second smaller 1 cm area of low density in the left lateral aspect of the left lobe of the liver. Those findings are again evident on this study and do not appear to have changed significantly. I suspect that these are benign such as a hemangioma. They were not clearly present on the prior CT chest, abdomen, and pelvis exam of 06/12/2014. I would concur with the recommendation of the hepatic ultrasound exam performed on 03/27/2021 that an MRI of the liver be obtained to better characterize these findings. There is no acute abnormality in the abdomen noted otherwise. The lung bases are clear. The bone windows are unremarkable for a fracture or for a destructive lesion. IMPRESSION: 1. The obstructive calculus in the distal left ureter seen previously is again evident and does not appear to have changed significantly in size or appearance. There is still no evidence for obstruction of the left collecting system, however. 2. There is no acute abnormality in the abdomen or pelvis noted otherwise. 3. The small areas of diminished density in the left lobe of the liver are of uncertain etiology although most likely benign. Recommendations as above. Dictated by: Dictated on workstation # [id number]
== END ==
LOC: RAD 13:45
PROVIDERS: ATTEND Urology
DX: N20.1 Calculus of ureter (principal); K76.89 Other specified diseases of liver
CPT/HCPCS: 74176

== ENCOUNTER → 2021-04-02 | Outpatient (CLI) | payer MEDICARE, MEDICAID ==
[~2021-04-02] MED LIST changes: +GADOTERATE 0.5 MMOL/ML (CLARISCAN) 15 ML VIAL IV ONE
--- NOTE | 2021-04-02 14:13 | Diagnostic Imaging Report ---
EXAMINATION: MRI of the abdomen with and without contrast. TECHNIQUE: Multiplanar, multisequence MR images of the abdomen were obtained with and without intravenous contrast. HISTORY: Liver mass. COMPARISON: CT dated 04/02/2021. FINDINGS: The liver is normal size. There is iron deposition in the liver. There are four liver lesions. The most easily characterized is in segment II and measures 15 mm. It is T2 intermediate in signal and T1 hyperintense with no discernible change in appearance on the contrast images. No surface nodularity. The gallbladder is normal. There is no biliary ductal dilation. Pancreas is normal. The pancreatic duct is normal. Spleen is normal. Adrenal glands are normal. There is a cyst in the right kidney. There is no hydronephrosis. Visualized bowel is normal. No lymphadenopathy is seen. Lung bases are clear. No osseous lesions are seen. IMPRESSION: 1. Liver lesions remain indeterminate as they have an unusual signal characteristics of T2 intermediate signal and T1 hyperintense signal with no change with contrast. Differential includes atypical hemangioma, sequelae of prior hemorrhage or infection, and metastatic disease, particularly from a T1 hyperintense malignancy such as melanoma. Options include close follow-up, biopsy, or PET/CT to attempt to identify a primary malignancy. Dictated by: Dictated on workstation # [id number]
== END ==
LOC: RAD 11:54
PROVIDERS: ATTEND Family Medicine
DX: R16.0 Hepatomegaly, not elsewhere classified (principal)
CPT/HCPCS: 74183

== ENCOUNTER 2021-04-06 14:04 | Outpatient (CLI) | payer MEDICARE, MEDICAID ==
[~2021-04-06] VITALS: Ht 185.5 cm; Wt 92.3 kg
[~2021-04-06 14:04] MED LIST changes: -PHEN-640 PO; -SULF1TAB38 PO
[2021-04-07] MEDS ORDERED: SULF1TAB38 PO (11:11)
[2021-04-07] MEDS ORDERED: PHEN-640 PO (11:11)
[2021-04-07] MEDS ORDERED: KETO10TA PO (11:11)
== END 2021-04-06 14:31 | disposition home or self-care (01) ==
LOC: PREOP 14:04
PROVIDERS: ATTEND Urology
DX: Z01.818 Encounter for other preprocedural examination (principal)

== ENCOUNTER → 2021-04-06 | Outpatient (CLI) | payer MEDICARE, MEDICAID ==
[~2021-04-06] MED LIST changes: -GADOTERATE 0.5 MMOL/ML (CLARISCAN) 15 ML VIAL IV ONE; +PHEN-640 PO; +SULF1TAB38 PO
--- NOTE | 2021-04-06 13:05 | Diagnostic Imaging Report ---
INDICATION: History of distal left ureteral calculus. COMPARISON: 03/26/2021. FINDINGS: Two supine radiographic views of the abdomen were obtained and show interval resolution of the previously described calculus projecting over the left hemipelvis. No unexpected extraosseous calcifications or radiopaque foreign bodies are seen on today's exam. The small bowel loops are nondistended. There is no large collection of free intraperitoneal air. The osseous structures show age-related degenerative changes. IMPRESSION: 1. Interval resolution of the previously described distal left ureteral calculus. 2. Nonobstructed small bowel gas pattern. Dictated by: Dictated on workstation # [id number]
== END ==
LOC: RAD 12:25
PROVIDERS: ATTEND Urology
DX: N20.1 Calculus of ureter (principal)
CPT/HCPCS: 74018

== ENCOUNTER 2021-04-07 07:57 | Day surgery (SDC) | payer MEDICARE, MEDICAID ==
[~2021-04-07] VITALS: Ht 185.5 cm; Wt 92.3 kg
[2021-04-07] VITALS (10 sets, daily range): BP systolic 108–139; BP diastolic 64–82
--- NOTE | 2021-04-07 08:05 | Progress Note-Pre Operative ---
Pre-Operative Progress Note H&P Reviewed The H&P was reviewed, patient examined and no changes noted. Date Seen by Provider: Apr 07, 2021 Time Seen by Provider: 08:05 Date H&P Reviewed: Apr 07, 2021 Time H&P Reviewed: 08:05 Pre-Operative Diagnosis: LT URETERAL STONE PIEDAD RAYA MD Apr 07, 2021 08:05
[2021-04-07] MEDS ORDERED: cefTRIAXone 1,000 MG in WATER (STERILE) FOR INJECTION 10 ML IV ONE (08:15)
[2021-04-07] MEDS ORDERED: fentaNYL INJ 100 MCG/2 ML AMP ONE (08:34)
[2021-04-07] MEDS ORDERED: LIDOCAINE PF 2% 5 ML (XYLOCAINE) VIAL ONE (08:34)
[2021-04-07] MEDS ORDERED: proPOfol 200 MG/20 ML (DIPRIVAN) VIAL IV ONE (08:34)
[2021-04-07 08:35] LABS: AMPHETAMINE SCREEN, URINE NEGATIVE (NEGATIVE); BARBITURATE SCREEN URINE NEGATIVE (NEGATIVE); BENZODIAZEPINES SCREEN URINE NEGATIVE (NEGATIVE); CANNABINOID SCREEN, URINE POSITIVE (NEGATIVE); COCAINE SCREEN URINE NEGATIVE (NEGATIVE); METHADONE STAT NEGATIVE (NEGATIVE); METHAMPHETAMINE SCREEN URINE S NEGATIVE (NEGATIVE); OPIATE SCREEN URINE NEGATIVE (NEGATIVE); OXYCODONE STAT NEGATIVE (NEGATIVE); PROPOXYPHENE STAT NEGATIVE (NEGATIVE); TRICYCLIC ANTIDEPRESSANTS SCRE NEGATIVE (NEGATIVE)
[2021-04-07] MEDS ORDERED: MIDAZOLAM 2 MG/2 ML (VERSED) VIAL ONE (08:35)
--- NOTE | 2021-04-07 08:36 | Diagnostic Imaging Report ---
INDICATION: History of ureteral calculus. Status post ESWL. COMPARISON: 04/06/2021 FINDINGS: Single frontal radiograph view the abdomen was obtained. Small bowel loops are nondistended. There is no large collection of free intraperitoneal air. No unexpected extraosseous calcifications or radiopaque foreign bodies are seen. Osseous structures show age-related degenerative changes. IMPRESSION: 1. Nonobstructive small bowel gas pattern. Dictated by: Dictated on workstation # [id number]
[2021-04-07] MEDS: LACTATED RINGERS 1,000 ML IV PRN ×3 (08:47→09:31)
--- NOTE | 2021-04-07 08:49 | Progress Note-Post Operative ---
Post-Operative Progess Note Surgeon (s)/Film Color Tester (s) Surgeon PIEDAD RAYA MD Film Color Tester: NONE Pre-Operative Diagnosis LT URETERAL STONE Post-Operative Diagnosis SAME Procedure & Operative Findings Date of Procedure 04/07/21 Procedure Performed/Findings LT URETEROSCOPY WITH STONE BASKET AND RETROGRADE UROGRAM Anesthesia Type GENERAL Estimated Blood Loss Estimated blood loss (mL): NONE Specimens/Packing Specimens Removed NONE Packing: NONE PIEDAD RAYA MD Apr 07, 2021 08:49
--- NOTE | 2021-04-07 08:50 | Discharge Inst-Urology ---
Discharge Inst-Urology Reconcile Patient Problems Problems Reviewed?: Yes Final Diagnosis LT DISTAL URETERAL STONE Patient Instructions/Follow Up Plan/Assessment/Instructions Please make appointment to been seen in office in 4 weeks. Increase oral fluids for 48 hours and then as needed. Diet and Activity as tolerated. If questions or concerns contact your physician Or seek help at emergency department. PIEDAD RAYA MD Apr 07, 2021 08:50
[2021-04-07] MEDS ORDERED: KETOROLAC 30 MG/ML VIAL ONE (09:56)
[2021-04-07] MEDS ORDERED: SEVOFLURANE (ULTANE) 15 ML INHAL SOLN ONE (09:56)
[2021-04-07] MEDS ORDERED: FUROSEMIDE 40 MG/4 ML INJ (LASIX) ONE (09:56)
[2021-04-07] MEDS ORDERED: ONDANSETRON 4 MG/2 ML (SDV) Z0FRAN ONE (09:56)
--- NOTE | 2021-04-07 10:26 | Anesthesia-General Post-Op ---
General Patient Condition Mental Status/LOC: Same as Preop Cardiovascular: Satisfactory Nausea/Vomiting: Absent Respiratory: Satisfactory Pain: Controlled Complications: Absent Post Op Complications Complications None Follow Up Care/Instructions Patient Instructions None needed. Anesthesia/Patient Condition Patient Condition Patient is doing well, no complaints, stable vital signs, no apparent adverse anesthesia problems. No complications reported per nursing. VINOD RODRÍGUEZ CRNA Apr 07, 2021 10:26
[2021-04-07] MEDS ORDERED: SULF1TAB38 PO (11:11)
[2021-04-07] MEDS ORDERED: KETO10TA PO (11:11)
[2021-04-07] MEDS ORDERED: PHEN-640 PO (11:11)
--- NOTE | 2021-04-07 18:39 | OPERATIVE REPORT ---
DATE OF SERVICE: 04/07/2021 PREOPERATIVE DIAGNOSIS: Left distal ureteral stone. POSTOPERATIVE DIAGNOSIS: Left distal ureteral stone. OPERATION PERFORMED: Left ureteroscopy with stone basket and retrograde urogram. SURGEON: Gómez Raya MD ANESTHESIA: General. COMPLICATIONS: None. DESCRIPTION OF PROCEDURE: Under satisfactory general anesthesia, the patient in lithotomy position, genitalia were prepped and draped in the usual sterile fashion. Cystoscope was introduced under vision. The anterior urethra was normal. The prostate was not enlarged, but there was a median bar causing some bladder neck obstruction. The bladder was entered, revealed some trabeculations. Ureteric orifices were displaced upward and laterally with clear efflux, sluggish on the left side. Using the foroblique lens, I dilated the left ureteral orifice intramural portion and first obtained a retrograde ureterogram, which showed a filling defect in the distal ureter where the stone was presumed to be. There were no significant obstruction and good emptying of the system. I removed the scope and a catheter, inserted 6.9 Sammarinese semirigid ureteroscope into the left ureteral orifice, visualized the stone that was soft about 3 to 4 mm and floating, so I decided to basket it. I engaged it with a 3-Sammarinese Murray basket and extracted it completely. Some fragments broke up. I went back with ureteroscope to confirm no more fragments, pass beyond the mid ureter and antegrade. Again, there was no more calcifications. No further stones. I removed the ureteroscope, reinserted the cystoscope to empty the bladder. The patient tolerated the procedure and anesthesia well and was sent to recovery room in stable condition. Job ID: [id number] DocumentID: [id number] Dictated Date: 04/07/2021 10:18:25 V Belt Builder Date: 04/07/2021 18:37:24 Dictated By: GÓMEZ RAYA MD
== END 2021-04-07 11:55 | disposition home or self-care (01) ==
LOC: SDC 07:57
PROVIDERS: ATTEND Urology
DX: N20.1 Calculus of ureter (principal); G62.9 Polyneuropathy, unspecified; K21.9 Gastro-esophageal reflux disease without esophagitis; F17.210 Nicotine dependence, cigarettes, uncomplicated; Z79.891 Long term (current) use of opiate analgesic; Z79.899 Other long term (current) drug therapy; Z83.3 Family history of diabetes mellitus; Z80.0 Family history of malignant neoplasm of digestive organs
CPT/HCPCS: 74018; 76000; 80306; 87081

== ENCOUNTER 2021-04-17 07:09 | Outpatient (CLI) | payer MEDICARE, MEDICAID ==
--- NOTE | 2021-04-16 06:52 | HISTORY AND PHYSICAL ---
DATE OF SERVICE: CHIEF COMPLAINT: The patient had CAT scan and MRI showing a lesion in the liver. The patient states he needs a biopsy to have this done by the radiology retail agent. ALLERGIC TO MEDICATIONS: ASPIRIN. MEDICATIONS: Now nothing. Recently was on hydrocodone for left ureteral stones. PREVIOUS SURGERIES: Gallbladder, kidney stone, left ureter by Dr. Hobbs, tip of the left ring finger. FAMILY HISTORY: Mom and dad, diabetes. Mom, cancer of the belly and lungs. Denies asthma, TB or heart disease. REVIEW OF SYSTEMS: HEAD: Gets headaches 2 times a week. Denies dizziness and fainting. EYES, EARS, NOSE AND THROAT: Denies diplopia, tinnitus, sore throat. HEART: No history of heart problems, heart murmurs or chest pain or angina. LUNGS: Smokes 1 pack a day. The patient has history of getting short of breath. Denies asthma, TB. GASTROINTESTINAL: Appetite good. Denies blood in stools, diarrhea, constipation, ulcer or vomiting. GENITOURINARY: The patient recently had vascular procedure by Dr. Hobbs for left ureteral stone. PHYSICAL EXAMINATION: GENERAL: The patient is a white male, well nourished, well developed, in no acute respiratory distress at rest. EARS: No discharge. EYES: No conjunctivitis or icterus. THROAT: Noninflamed. The patient is edentulous. NECK: Thyroid not enlarged. No abnormal cervical lymphadenopathy noted. HEART: Regular rate and rhythm. LUNGS: Decreased sounds. ABDOMEN: Soft. Liver and spleen nonpalpable. EXTREMITIES: No pretibial edema. ASSESSMENT AND PLAN: The patient is okay to have biopsy of the liver for two lesions. CC: Radiologist -- requested, unable to deliver. Job ID: [id number] DocumentID: [id number] Dictated Date: 04/13/2021 10:17:52 Employment Law Specialist Date: 04/13/2021 10:48:40 Dictated By: FANNIE KHALIL DO
[~2021-04-17] VITALS: Ht 185.5 cm; Wt 91.8 kg
[2021-04-17] VITALS (14 sets, daily range): BP systolic 99–142; BP diastolic 61–88
[~2021-04-17 07:09] MED LIST changes: +PHEN-640 PO; +SULF1TAB38 PO
[2021-04-17 07:31] LABS: BASOPHILS # (AUTO) 0.1 10^3/uL (0.0-0.1); BASOPHILS % (AUTO) 1 % (0-10); EOSINOPHILS # (AUTO) 0.2 10^3/uL (0.0-0.3); EOSINOPHILS % (AUTO) 2 % (0-10); HEMATOCRIT 48 % (40-54); LYMPHOCYTES # (AUTO) 2.2 10^3/uL (1.0-4.0); LYMPHOCYTES % (AUTO) 23 % (12-44); MEAN CORPUSCULAR HEMOGLOBIN 34 pg (25-34); MEAN CORPUSCULAR HGB CONC 34 g/dL (32-36); MEAN CORPUSCULAR VOLUME 99 fL (80-99); MEAN PLATELET VOLUME 10.6 fL (9.0-12.2); MONOCYTES # (AUTO) 0.8 10^3/uL (0.0-1.0); MONOCYTES % (AUTO) 8 % (0-12); NEUTROPHILS # (AUTO) 6.2 10^3/uL (1.8-7.8); NEUTROPHILS % (AUTO) 65 % (42-75); PLATELET COUNT 178 10^3/uL (130-400); WHITE BLOOD COUNT 9.5 10^3/uL (4.3-11.0)
[2021-04-17 07:51] LABS: PROTHROMBIN TIME PATIENT 13.8 SEC (12.2-14.7)
[2021-04-17] MEDS ORDERED: NS IV 1000 ML 1,000 ML IV STA (07:57)
[2021-04-17] MEDS ORDERED: fentaNYL INJ 100 MCG/2 ML AMP IVP ONE (08:00)
[2021-04-17] MEDS ORDERED: LIDOCAINE 1% INJ 20 ML 20 ML VIAL INJ ONE (08:00)
[2021-04-17] MEDS ORDERED: MIDAZOLAM 2 MG/2 ML (VERSED) VIAL IVP ONE (08:00)
[2021-04-17] MEDS ORDERED: NS IV 1000 ML 1,000 ML ONE (08:37)
[2021-04-17] MEDS ORDERED: MIDAZOLAM 2 MG/2 ML (VERSED) VIAL ONE (08:38)
[2021-04-17] MEDS ORDERED: LIDOCAINE 1% INJ 20 ML 20 ML VIAL ONE (08:38)
[2021-04-17] MEDS ORDERED: fentaNYL INJ 100 MCG/2 ML AMP ONE (08:38)
--- NOTE | 2021-04-17 11:12 | Diagnostic Imaging Report ---
INDICATION: Liver mass. The patient presents for a CT-guided liver mass biopsy. TECHNIQUE: All CT scans use one or more of the following dose optimizing techniques: automated exposure control, MA and/or KvP adjustment based on patient size and exam type or iterative reconstruction. The patient was brought to the CT suite, placed on the table in the supine position. Axial imaging through the abdomen was performed to evaluate appropriate entry site. Midline upper abdomen was prepped and draped in the usual sterile fashion. A small amount of 1% lidocaine was utilized for local anesthesia. The procedure was performed utilizing conscious sedation with radiology nursing and constant patient monitoring. The patient was given a total of 100 mg of fentanyl intravenously and 1 mg of Versed intravenously. Total procedure time was 8 minutes. An 18-gauge coaxial Temno needle was advanced and placed with its tip along the margin of the low-density lesion in the left lobe of the liver. A total of 4 core biopsies were obtained. A blood patch was injected during needle removal. Follow-up imaging shows no complicating features. IMPRESSION: CT-guided left lobe liver nodule biopsy, utilizing conscious sedation. Pathology results are currently pending. Dictated by: Dictated on workstation # [id number]
--- NOTE | 2021-04-17 13:41 | Pre-Op Note & Conscious Sedat ---
Pre-Operative Progress Note H&P Reviewed The H&P was reviewed, patient examined and no changes noted. Date H&P Reviewed: Apr 17, 2021 Time H&P Reviewed: 08:00 Pre-Op Diagnosis: liver mass Conscious Sedation Pre-Proced Time 08:00 ASA Score 2 For ASA 3 and 4: Consider anesthesia and medical clearance. Also, for patients with a history of failed moderate sedation consider anesthesia. Airway Lungs Heart ASA score ASA 1: a normal healthy patient ASA 2: a patient with a mild systemic disease (mid diabetes, controlled hypertension, obesity ASA 3: a patient with a severe systemic disease that limits activity (angina, COPD, prior Myocardial infarction) ASA 4: a patient with an incapacitating disease that is a constant threat to life (CHF, renal failure) ASA 5: a moribund patient not expected to survive 24 hrs. (ruptured aneurysm) ASA 6: a declared brain- patient whose organs are being harvested. For emergent operations, add the letter E after the classification Mallampati Classification Grade 2 Sedation Plan Analgesia, Amnesia, Plan communicated to team members, Discussed options with patient/fam, Discussed risks with patient/fam The patient is an appropriate candidate to undergo the planned procedure, sedation, and anesthesia. The patient immediately re-assessed prior to indication. PALMER CARTER MD Apr 17, 2021 13:41
== END 2021-04-17 11:50 ==
LOC: SDC 07:09
PROVIDERS: ATTEND Family Medicine
DX: R16.0 Hepatomegaly, not elsewhere classified (principal); R91.1 Solitary pulmonary nodule
CPT/HCPCS: 36415; 77012; 85025; 85610; 85730; 99156

== ENCOUNTER 2021-06-09 13:43 | Outpatient (RCR) | payer MEDICARE, MEDICAID ==
[2021-06-09 15:28] LABS: BASOPHILS # (AUTO) 0.1 10^3/uL (0.0-0.1); BASOPHILS % (AUTO) 1 % (0-10); EOSINOPHILS # (AUTO) 0.2 10^3/uL (0.0-0.3); EOSINOPHILS % (AUTO) 2 % (0-10); HEMATOCRIT 48 % (40-54); HEMOGLOBIN 16.1 g/dL (13.3-17.7); LYMPHOCYTES # (AUTO) 2.4 10^3/uL (1.0-4.0); LYMPHOCYTES % (AUTO) 27 % (12-44); MEAN CORPUSCULAR HEMOGLOBIN 34 pg (25-34); MEAN CORPUSCULAR HGB CONC 34 g/dL (32-36); MEAN CORPUSCULAR VOLUME 99 fL (80-99); MEAN PLATELET VOLUME 10.9 fL (9.0-12.2); MONOCYTES # (AUTO) 0.6 10^3/uL (0.0-1.0); MONOCYTES % (AUTO) 7 % (0-12); NEUTROPHILS # (AUTO) 5.8 10^3/uL (1.8-7.8); NEUTROPHILS % (AUTO) 64 % (42-75); PLATELET COUNT 191 10^3/uL (130-400); WHITE BLOOD COUNT 9.2 10^3/uL (4.3-11.0)
[2021-06-09 15:39] LABS: PROTHROMBIN TIME PATIENT 13.3 SEC (12.2-14.7)
[2021-06-09 15:47] LABS: ALBUMIN 4.3 GM/DL (3.2-4.5); BILIRUBIN,TOTAL 0.5 MG/DL (0.1-1.0); CALCIUM 9.2 MG/DL (8.5-10.1); CREATININE SERUM 1.12 MG/DL (0.60-1.30); POTASSIUM 4.2 MMOL/L (3.6-5.0)
== END 2021-07-06 | disposition home or self-care (01) ==
LOC: ONC 13:43
PROVIDERS: ATTEND Internal Medicine Hematology & Oncology
DX: C22.0 Liver cell carcinoma (principal); E83.119 Hemochromatosis, unspecified; K74.60 Unspecified cirrhosis of liver
CPT/HCPCS: 80053; 81256; 82105; 82378; 82728; 83540; 83550; 85025; 85610; 86301; G0463; 99214

== ENCOUNTER 2021-08-17 05:38 | Outpatient (RCR) | payer MEDICAID, MEDICARE ==
[~2021-08-17] VITALS: Ht 185.4 cm; Wt 95.7 kg
[2021-08-17] MEDS ORDERED: MELO15TA39 PO (14:18)
[2021-08-17] MEDS ORDERED: PANT40TA52 PO (14:18)
[2021-08-17] MEDS ORDERED: CYCL10TA25 PO (14:18)
== END 2021-08-17 14:34 | disposition home or self-care (01) ==
LOC: PREOP 05:38
PROVIDERS: ATTEND Surgery
DX: Z01.818 Encounter for other preprocedural examination (principal)

== ENCOUNTER 2021-08-24 07:15 | Day surgery (SDC) | payer MEDICAID, MEDICARE ==
[~2021-08-24] VITALS: Ht 185.5 cm; Wt 95.7 kg
[~2021-08-24 07:15] MED LIST changes: +CYCL10TA25 PO; +MELO15TA39 PO
[2021-08-24] MEDS ORDERED: LACTATED RINGERS 1,000 ML IV STA (07:29)
[2021-08-24] MEDS ORDERED: LACTATED RINGERS 1,000 ML IV ONE (07:40)
[2021-08-24 07:45] VITALS: BP 125/73
[2021-08-24] MEDS ORDERED: HURRICAINE EXT TUBE (BENZOCAINE) XX PRN (08:15)
[2021-08-24] MEDS ORDERED: KETAMINE 50 MG/5 ML SYRINGE ONE (08:39)
[2021-08-24] MEDS ORDERED: PROPOFOL INJECTION 50 ML IV ONE (08:39)
--- NOTE | 2021-08-24 08:39 | Progress Note-Pre Operative ---
Pre-Operative Progress Note H&P Reviewed The H&P was reviewed, patient examined and no changes noted. Date Seen by Provider: Aug 24, 2021 Time Seen by Provider: 08:39 Date H&P Reviewed: Aug 24, 2021 Time H&P Reviewed: 08:39 Pre-Operative Diagnosis: liver carcinoma, variceal evaluation SUSHANT PENA DO Aug 24, 2021 08:39
[2021-08-24 08:55] VITALS: BP 125/78
--- NOTE | 2021-08-24 08:59 | Progress Note-Post Operative ---
Post-Operative Progess Note Surgeon (s)/Electron Beam Photo Mask Maker (s) Surgeon SUSHANT PENA DO Electron Beam Photo Mask Maker: na Pre-Operative Diagnosis liver carcinoma, variceal evaluation Post-Operative Diagnosis hiatal hernia Procedure & Operative Findings Date of Procedure 08/24/21 Procedure Performed/Findings egd Anesthesia Type per carpentry foreman Estimated Blood Loss Estimated blood loss (mL): none Specimens/Packing Specimens Removed na SUSHANT PENA DO Aug 24, 2021 08:59
[2021-08-24 09:00] VITALS: BP 100/55
--- NOTE | 2021-08-24 09:01 | Discharge Inst-Simple/Standard ---
Discharge Inst-Standard Patient Instructions/Follow Up Plan of Care/Instructions/FU: Follow up with your liver doctor at next appointment. Follow up with Dr. Lopez on as needed basis. Activity as Tolerated: Yes Discharge Diet: Regular Diet SUSHANT LOPEZ DO Aug 24, 2021 09:00
[2021-08-24 09:05] VITALS: BP 112/58
[2021-08-24 09:25] VITALS: BP 116/77
[2021-08-24 09:28] VITALS: BP 116/77
--- NOTE | 2021-08-24 09:56 | Anesthesia-General Post-Op ---
MAC Patient Condition Mental Status/LOC: Same as Preop Cardiovascular: Satisfactory Nausea/Vomiting: Absent Respiratory: Satisfactory Pain: Controlled Complications: Absent Post Op Complications Complications None Follow Up Care/Instructions Patient Instructions None needed. Anesthesiology Discharge Order Discharge Order Patient is doing well, no complaints, stable vital signs, no apparent adverse anesthesia problems. No complications reported per nursing. LORENE OCONNELL CRNA Aug 24, 2021 09:55
--- NOTE | 2021-08-25 11:02 | OPERATIVE REPORT ---
DATE OF SERVICE: 08/24/2021 PREOPERATIVE DIAGNOSIS: Liver carcinoma, variceal evaluation. POSTOPERATIVE DIAGNOSIS: Hiatal hernia. PROCEDURE PERFORMED: EGD. SURGEON: Sushant Lopez DO. ANESTHESIA: Per MACHINING DEPARTMENT SUPERVISOR. ESTIMATED BLOOD LOSS: None. COMPLICATIONS: None. INDICATIONS FOR PROCEDURE: The patient is a 61-year-old male needing a variceal checked. He understands the risks and benefits of the procedure and wishes to proceed. Consent was signed in the chart. DESCRIPTION OF PROCEDURE: The patient was taken to the endoscopy suite and placed in the left lateral recumbent position. A timeout was performed. Scope was inserted in the mouth, down the esophagus, stomach and into the duodenum without difficulty. There were no polyps, masses or ulcerations present. Scope was slowly retracted back in the stomach, where it was further insufflated. No polyps, masses or ulcerations. Scope was retroflexed noting a hiatal hernia, no other pathology. Scope was returned to its normal position, slowly withdrawn to the distal esophagus. No polyps, masses or ulcerations. No varices. Scope was slowly retracted back until completely removed. The patient tolerated the procedure well without any complications and taken to the recovery room in stable condition. RECOMMENDATIONS: The patient will continue to follow up with his regular physician. If any changes, he should be reevaluated at that time. Job ID: [id number] DocumentID: [id number] Dictated Date: 08/25/2021 08:07:34 Senior Sales Representative Date: 08/25/2021 11:01:39 Dictated By: SUSHANT LOPEZ DO
== END 2021-08-24 09:33 | disposition home or self-care (01) ==
LOC: ENDO 07:15
PROVIDERS: ATTEND Surgery
DX: K44.9 Diaphragmatic hernia without obstruction or gangrene (principal); C22.7 Other specified carcinomas of liver; Z79.899 Other long term (current) drug therapy; F17.210 Nicotine dependence, cigarettes, uncomplicated; Z80.0 Family history of malignant neoplasm of digestive organs; Z80.1 Family history of malignant neoplasm of trachea, bronchus and lung

== ENCOUNTER 2021-09-05 22:12 | Emergency (ER) | payer MEDICARE ==
[~2021-09-05] VITALS: Ht 185 cm; Wt 95.7 kg
[2021-09-05 23:09] LABS: BASOPHILS # (AUTO) 0.1 10^3/uL (0.0-0.1); BASOPHILS % (AUTO) 0 % (0-10); EOSINOPHILS % (AUTO) 0 % (0-10); HEMATOCRIT 44 % (40-54); HEMOGLOBIN 15.2 g/dL (13.3-17.7); LYMPHOCYTES # (AUTO) 1.5 10^3/uL (1.0-4.0); LYMPHOCYTES % (AUTO) 11 % (12-44); MEAN CORPUSCULAR HEMOGLOBIN 34 pg (25-34); MEAN CORPUSCULAR HGB CONC 35 g/dL (32-36); MEAN CORPUSCULAR VOLUME 98 fL (80-99); MEAN PLATELET VOLUME 11.5 fL (9.0-12.2); MONOCYTES # (AUTO) 1.3 10^3/uL (0.0-1.0); MONOCYTES % (AUTO) 10 % (0-12); NEUTROPHILS # (AUTO) 10.4 10^3/uL (1.8-7.8); NEUTROPHILS % (AUTO) 78 % (42-75); PLATELET COUNT 171 10^3/uL (130-400); WHITE BLOOD COUNT 13.4 10^3/uL (4.3-11.0)
[2021-09-05 23:14] LABS: INR 1.1 (0.8-1.4); PROTHROMBIN TIME PATIENT 14.3 SEC (12.2-14.7)
[2021-09-05 23:16] LABS: ALBUMIN 4.1 GM/DL (3.2-4.5); POTASSIUM 3.6 MMOL/L (3.6-5.0)
[2021-09-05 23:17] LABS: CALCIUM 8.8 MG/DL (8.5-10.1)
[2021-09-05 23:19] LABS: TOTAL PROTEIN 6.9 GM/DL (6.4-8.2)
[2021-09-05 23:20] LABS: BILIRUBIN,TOTAL 1.4 MG/DL (0.1-1.0)
[2021-09-05 23:22] LABS: CREATININE SERUM 0.88 MG/DL (0.60-1.30)
--- NOTE | 2021-09-05 23:24 | ED Abdominal Pain ---
General Chief Complaint: Fever-Adult/Adol Stated Complaint: POST OP LIVER; FEVER OF 101 Nursing Triage Note: patient states liver tumor removal Tuesday, discharged from . Today patient Fever 101, Vomitting, Aches all over Source of Information: Patient, Other Exam Limitations: No Limitations History of Present Illness Date Seen by Provider: Sep 05, 2021 Time Seen by Provider: 22:45 Initial Comments Patient ER by private conveyance from home with his significant other and chief complaint that he is having some progressively worsening left upper quadrant abdominal pain today, 10 out of 10. He took his OxyContin for the first time after surgery today and it did help significantly. His significant other states that she checked his temperature orally and he had 102 fever. He has not taken any antipyretics. He has had a cough nonproductive but he is also a smoker of tobacco and cannabis. Distant history of methamphetamine use many years ago. Patient had surgery by Dr. Moctezuma at on Tuesday, 3 days ago to have ablation of some tumors in his liver. He said he was doing well, ambulating well, passing stools daily and does not feel distended. He does have a history of ulcers and GERD and has a planned endoscopy with Dr. Pena within the next couple weeks. He is not on any antacids. He did have 1 episode of emesis after taking the OxyContin. Allergies and Home Medications Allergies Coded Allergies: aspirin (Verified Allergy, Mild, N/V, 12/01/20) Patient Home Medication List Home Medication List Reviewed: Yes Cyclobenzaprine HCl (Cyclobenzaprine HCl) 10 Mg Tablet, 10 MG PO DAILY, (Reported) Entered as Reported by: BRAYAN MCMAHAN on 08/17/211417 Meloxicam (Meloxicam) 15 Mg Tablet, 15 MG PO DAILY, (Reported) Entered as Reported by: BRAYAN MCMAHAN on 08/17/211417 Pantoprazole Sodium (Pantoprazole Sodium) 40 Mg Tablet.dr, 40 MG PO DAILY, (Reported) Entered as Reported by: BRAYAN MCMAHAN on 08/17/211417 Review of Systems Review of Systems Constitutional: No chills, No diaphoresis; fever EENTM: No Blurred Vision, No Double Vision Respiratory: Cough; Denies Shortness of Air, Denies SOA With Exertion, Denies SOA at Rest Cardiovascular: Denies Edema Gastrointestinal: Denies Constipated, Denies Diarrhea; Nausea, Vomiting (X1) Genitourinary: Denies Burning, Denies Discharge Musculoskeletal: No back pain, No joint pain Skin: No pruritus, No rash Psychiatric/Neurological: Denies Anxiety, Denies Depressed All Other Systems Reviewed Negative Unless Noted: Yes Past Ljybnjh-Jztqjw-Yfbzlm Hx Patient Social History Tobacco Use?: No Use of E-Cig and/or Vaping dev: No Substance use?: No Immunizations Up To Date Tetanus Booster (TDap): Unknown PED Vaccines UTD: No First/Initial COVID19 Vaccinat: NO Second COVID19 Vaccination Berhane: NO Third COVID19 Vaccination Date: NO Seasonal Allergies Seasonal Allergies: No Past Medical History Surgery/Hospitalization HX: CHOLECYSTECTOMY 12/04/[address] PENA LEFT CHEST TUBE 10/2010 SECONDARY TO TRAUMA BILATERAL CARPAL TUNNEL SURGERY X 2 CERVICAL SPINE SURGERY FINGER SURGERY COLONOSCOPIES Surgeries: Yes (BILAT CARPAL TUNNEL X2, NECK, FINGER, COLONOSCOPIES) Gallbladder, Orthopedic Respiratory: Yes (LEFT CHEST TUBE 2010 SECONDARY TO TRAUMA) Currently Using CPAP: No Currently Using BIPAP: No Cardiac: No Neurological: Yes (? 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) Headaches /Migraines, Neuropathy, Stroke Reproductive Disorders: No Sexually Transmitted Disease: No HIV/AIDS: No Genitourinary: Yes Kidney Stones Gastrointestinal: Yes Gastroesophageal Reflux, Chronic Constipation, Gall Bladder Disease Musculoskeletal: Yes (CHRONIC NECK/ BACK PAIN; HIP AND LEG PAIN; SHOULDER PAIN; L FOOT FX;GWEN CT) Arthritis Endocrine: No HEENT: No Loss of Vision: Denies Hearing Impairment: Denies Cancer: Yes Liver Psychosocial: Yes (POLYSUBSTANCE ABUSE) Integumentary: No Blood Disorders: No Adverse Reaction/Blood Tranf: No (N/A) Family Medical History SOCIAL HISTORY: -SMOKES 3 PPD -ETOH--HEAVY/DAILY USE--CLAIMS NO RECENT USE -DRUGS--+ IV METH, COCAINE, HEROIN, ALSO THC, RX PILLS Physical Exam Vital Signs Vital Signs - First Documented 09/05/21 22:34 Temp 37.7 Pulse 109 Resp 20 B/P (MAP) 139/106 (117) Pulse Ox 97 O2 Delivery Room Air Capillary Refill : Less Than 3 Seconds Height/Weight/BMI Height: 6'1" Weight: 220lbs. oz. 99.382756kn; 27.00 BMI Method:Stated General Appearance: WD/WN, no apparent distress HEENT: PERRL/EOMI, pharynx normal Neck: full range of motion, supple, normal inspection Respiratory: lungs clear, normal breath sounds, no respiratory distress, no accessory muscle use Cardiovascular: normal peripheral pulses, regular rate, rhythm Peripheral Pulses: 2+ Radial Pulses (R), 2+ Radial Pulses (L) Gastrointestinal: normal bowel sounds, soft, tenderness (Mild tenderness left upper quadrant and epigastric region) Extremities: normal inspection, no pedal edema, normal capillary refill Neurologic/Psychiatric: alert, normal mood/affect, oriented x 3 Skin: normal color, warm/dry, other (External abdominal surgical wounds are well approximated, dry intact and healing well. No erythema or fluctuance palpable.) Progress/Results/Core Measures Results/Orders Lab Results Laboratory Tests Test 09/05/21 22:35 09/05/21 23:40 Range/Units White Blood Count 13.4 H 4.3-11.0 10^3/uL Red Blood Count 4.50 4.30-5.52 10^6/uL Hemoglobin 15.2 13.3-17.7 g/dL Hematocrit 44 40-54 % Mean Corpuscular Volume 98 80-99 fL Mean Corpuscular Hemoglobin 34 25-34 pg Mean Corpuscular Hemoglobin Concent 35 32-36 g/dL Red Cell Distribution Width 13.2 10.0-14.5 % Platelet Count 171 130-400 10^3/uL Mean Platelet Volume 11.5 9.0-12.2 fL Immature Granulocyte % (Auto) 0 % Neutrophils (%) (Auto) 78 H 42-75 % Lymphocytes (%) (Auto) 11 L 12-44 % Monocytes (%) (Auto) 10 0-12 % Eosinophils (%) (Auto) 0 0-10 % Basophils (%) (Auto) 0 0-10 % Neutrophils # (Auto) 10.4 H 1.8-7.8 10^3/uL Lymphocytes # (Auto) 1.5 1.0-4.0 10^3/uL Monocytes # (Auto) 1.3 H 0.0-1.0 10^3/uL Eosinophils # (Auto) 0.0 0.0-0.3 10^3/uL Basophils # (Auto) 0.1 0.0-0.1 10^3/uL Immature Granulocyte # (Auto) 0.1 0.0-0.1 10^3/uL Prothrombin Time 14.3 12.2-14.7 SEC INR Comment 1.1 0.8-1.4 Activated Partial Thromboplast Time 41 H 24-35 SEC Sodium Level 136 135-145 MMOL/L Potassium Level 3.6 3.6-5.0 MMOL/L Chloride Level 104 98-107 MMOL/L Carbon Dioxide Level 18 L 21-32 MMOL/L Anion Gap 14 5-14 MMOL/L Blood Urea Nitrogen 10 7-18 MG/DL Creatinine 0.88 0.60-1.30 MG/DL Estimat Glomerular Filtration Rate 97 BUN/Creatinine Ratio 11 Glucose Level 135 H 70-105 MG/DL Calcium Level 8.8 8.5-10.1 MG/DL Corrected Calcium 8.7 8.5-10.1 MG/DL Total Bilirubin 1.4 H 0.1-1.0 MG/DL Aspartate Amino Transf (AST/SGOT) 86 H 5-34 U/L Alanine Aminotransferase (ALT/SGPT) 135 H 0-55 U/L Alkaline Phosphatase 121 40-136 U/L C-Reactive Protein High Sensitivity 6.52 H 0.00-0.50 MG/DL Total Protein 6.9 6.4-8.2 GM/DL Albumin 4.1 3.2-4.5 GM/DL Lipase 18 8-78 U/L Monoscreen NEGATIVE NEGATIVE Urine Color ORANGE Urine Clarity CLEAR Urine pH 6.5 5-9 Urine Specific Wood 1.025 H 1.016-1.022 Urine Protein NEGATIVE NEGATIVE Urine Glucose (UA) NEGATIVE NEGATIVE Urine Ketones NEGATIVE NEGATIVE Urine Nitrite NEGATIVE NEGATIVE Urine Bilirubin 1+ H NEGATIVE Urine Urobilinogen 2.0 < = 1.0 MG/DL Urine Leukocyte Esterase NEGATIVE NEGATIVE Urine RBC (Auto) NEGATIVE NEGATIVE Urine RBC NONE /HPF Urine WBC NONE /HPF Urine Squamous Epithelial Cells 0-2 /HPF Urine Crystals NONE /LPF Urine Bacteria NEGATIVE /HPF Urine Casts NONE /LPF Urine Mucus LARGE H /LPF Urine Culture Indicated NO My Orders Orders - MANUEL TODD Ua Culture If Indicated (09/05/21 22:59) Cbc With Automated Diff (09/05/21 22:59) Comprehensive Metabolic Panel (09/05/21 22:59) Protime With Inr (09/05/21 22:59) Lipase (09/05/21 22:59) Hs C Reactive Protein (09/05/21 22:59) Covid 19 Inhouse Test (09/05/21 23:16) Influenza A And B By Pcr (09/05/21 23:16) Monotest (09/05/21 23:16) Ed Iv/Invasive Line Start (09/05/21 23:16) Ns Iv 1000 Ml (Sodium Chloride 0.9%) (09/05/21 23:30) Famotidine Injection (Pepcid Injection) (09/05/21 23:30) Partial Thromboplastin Time (09/05/21 22:35) Ct Abdomen/Pelvis W (09/06/21 00:01) Chest 1 View, Ap/Pa Only (09/06/21 00:01) Iohexol Injection (Omnipaque 350 Mg/Ml 1 (09/06/21 02:00) Received Contrast (Hold Metformin- Contr (09/06/21 02:00) Ns (Ivpb) (Sodium Chloride 0.9% Ivpb Bag (09/06/21 02:00) Medications Given in ED Current Medications Medications Dose Ordered Sig/[place] Route Start Time Stop Time Status Last Admin Dose Admin Famotidine 20 mg ONCE ONCE IVP 09/05/21 23:30 09/05/21 23:31 DC 09/05/21 23:42 20 MG Iohexol 100 ml ONCE ONCE IV 09/06/21 02:00 09/06/21 02:05 DC 09/06/21 02:01 100 ML Sodium Chloride 100 ml ONCE ONCE IV 09/06/21 02:00 09/06/21 02:05 DC 09/06/21 02:01 80 ML Vital Signs/I&O 09/05/21 22:34 Temp 37.7 Pulse 109 Resp 20 B/P (MAP) 139/106 (117) Pulse Ox 97 O2 Delivery Room Air Blood Pressure Mean: 117 Progress Progress Note #1: Time: 23:21 Progress Note Complication of surgery such as ileus? We will check some labs urine lipase and a CT of the abdomen pelvis with IV contrast. Chest x-ray for his cough as well as a flu and COVID. He is afebrile in the ER. Aseptic vital signs. He does not want anything for pain right now. Antiacids. Progress Note #2: Time: 02:31 Progress Note The patient continues to be afebrile. He does not have any significant pain at this time. We reviewed his findings with him and suggested that it could be an instrument air versus may be had a little fever from a virus but we do not find anything dangerous today. He has follow-up tomorrow with Dr. Pena and he has antacids he can take. Return precautions were discussed. Diagnostic Imaging Diagonstic Imaging: CT Plain Films/CT/US/NM/MRI: abdomen, pelvis Comments There are abnormal mixed density but predominantly low attenuation masses in the liver. 2 in the right hepatic lobe have low-attenuation parenchymal tracks which join at the right lateral capsular margin. The other is at the anterior left hepatic lobe adjacent to the anterior capsular margin. These have appe arance of hematomas. The straight line tracks of the right hepatic lesion to the right hepatic capsular margin suggest there may have been a biopsy or other instrumentation to the right hepatic lobe. Clinical correlation is necessary. The 2 lesions in the right hepatic lobe were not present on the prior study of 04/02/2021. There was a small hypodense lesion of the left hepatic lobe measuring approximately 1.6 cm in the vicinity of the left hepatic lobe lesion on the prior study, which again suggest the possibility was a biopsy performed. There is no definite indication of infection though infection cannot be completely excluded. Reviewed: [facility] Reviewed by Me Departure Impression Primary Impression: Postoperative abdominal pain Disposition: 01 HOME, SELF-CARE Condition: Stable Departure-Patient Inst. Decision time for Depature: 02:33 Referrals: FANNIE KHALIL DO (PCP/Family) Primary Care Physician Patient Instructions: Managing Pain After Surgery Add. Discharge Instructions: Keep your follow-up appointments tomorrow with Dr. Pena. Return to the ER for intractable pain, fever or other worrisome symptoms. All discharge instructions reviewed with patient and/or family. Voiced understanding. Copy Copies To 1: SUSHANT PENA TITUS J Sep 05, 2021 23:23
[2021-09-05] MEDS ORDERED: FAMOTIDINE 20MG/2ML IV (PEPCID) IVP ONE (23:30)
[2021-09-05] MEDS ORDERED: NS IV 1000 ML 1,000 ML IV SCH (23:30)
[2021-09-05 23:47] LABS: CLARITY,URINE CLEAR; COLOR,URINE ORANGE; GLUCOSE, URINE (UA) NEGATIVE (NEGATIVE); KETONES,URINE NEGATIVE (NEGATIVE); LEUKOCYTE ESTERASE ,URINE NEGATIVE (NEGATIVE); NITRITE,URINE NEGATIVE (NEGATIVE); PH,URINE 6.5 (5-9); PROTEIN,URINE NEGATIVE (NEGATIVE)
[2021-09-05 23:56] LABS: BACTERIA,URINE NEGATIVE /HPF; BILIRUBIN,URINE 1+ (NEGATIVE); SQUAMOUS EPITHELIAL CELL,UR 0-2 /HPF
[2021-09-06] MEDS ORDERED: NS 100 ML (IVPB) BAG IV ONE (02:00)
[2021-09-06] MEDS ORDERED: HOLD METFORMIN - RECEIVED CONTRAST 20 ML VIAL IV SCH (02:00)
[2021-09-06] MEDS ORDERED: IOHEXOL 350 MG/ML 100 ML (OMNIPAQUE 350) VIAL IV ONE (02:00)
[2021-09-06 02:40] VITALS: BP 146/83
--- NOTE | 2021-09-06 06:51 | Diagnostic Imaging Report ---
PROCEDURE: CT abdomen and pelvis with contrast. TECHNIQUE: Multiple contiguous axial images were obtained through the abdomen and pelvis after administration of intravenous contrast. Auto Exposure Controls were utilized during the CT exam to meet ALARA standards for radiation dose reduction. All CT scans use one or more of the following dose optimizing techniques: automated exposure control, MA and/or KvP adjustment based on patient size and exam type or iterative reconstruction. Indication: Abdominal pain with postop fever. Comparison: 04/02/2021. Discussion: The lung bases are unremarkable. Normal heart size. No pleural or pericardial fluid. There are 3 discrete lesions now present within the liver. One within the left hepatic lobe measures 3.4 x 3.7 cm, previously 1.3 cm. This lesion has been previously biopsied. There are 2 new lesions within the right hepatic lobe. The 1st measures 3.5 cm. The 2nd measures 3.5 cm. Both of these lesions share a tract extending to the capsule which is of uncertain etiology or clinical significance. This may be from prior instrumentation. The lesion within the left hepatic lobe now abuts the capsule. Etiology is indeterminate though recommend correlation with previous pathology from the prior biopsy. Findings are concerning for malignancy. This would be a somewhat atypical presentation for abscess. There may be an additional 4th tiny lesion measuring 1 cm along the free margin of the right hepatic lobe anteriorly, image #68. Mild inflammatory changes noted along the left hepatic lobe and also the transverse colon. Whether this represents changes from prior biopsy or instrumentation or an acute inflammatory infectious process either arising from the liver or the transverse colon is indeterminate. There is no overt wall thickening of the transverse colon. No diverticular disease in this region. No pneumatosis or pneumoperitoneum. The gallbladder surgically absent. The pancreas, stomach, spleen, and adrenal glands are unremarkable. 1 cm cyst noted within the right kidney. Smaller cysts noted on the left. No stone or hydronephrosis. The aorta is normal in caliber. The appendix is normal. The bladder and prostate are normal in size and appearance. No constipation or obstruction. No ascites or adenopathy. No acute osseous abnormality. Impression: 1. There are 3 lesions now present within the liver, 2 of which are new. The one on the left is significantly increased in size from the prior exam, the one on the left have been previously biopsied, recommend correlation with pathology results. Findings are concerning for malignancy. This would be an atypical appearance of intrahepatic abscess. 2. There is some mild inflammatory changes noted along the left hepatic lobe and the adjacent transverse colon. Whether this is residual changes from the prior biopsy or a new finding due to inflammation or infection of either the liver or the transverse colon is indeterminate. There is no free air or drainable abscess. 3. Agree with preliminary report. Dictated by: Dictated on workstation # [id number]
--- NOTE | 2021-09-06 06:56 | Diagnostic Imaging Report ---
INDICATION: Post operative fever. EXAMINATION: Chest on 09/06/2021. COMPARISON: 10/28/2010. FINDINGS: The cardiomediastinal silhouette is unremarkable. The pulmonary vasculature is within normal limits. The lungs and pleural spaces are clear. IMPRESSION: No evidence of an acute cardiopulmonary process. Dictated by: Dictated on workstation # [id number]
== END 2021-09-06 02:41 | disposition home or self-care (01) ==
LOC: EDUNIT# 22:12 → ER 22:15
DX: G89.18 Other acute postprocedural pain (principal); R10.13 Epigastric pain; F17.290 Nicotine dependence, other tobacco product, uncomplicated
CPT/HCPCS: 36415; 71045; 74177; 80053; 81000; 83690; 85025; 85610; 85730; 86141; 86308

== ENCOUNTER 2021-10-28 16:32 | Outpatient (CLI) | payer MEDICARE ==
[~2021-10-28] VITALS: Ht 185.4 cm; Wt 96.4 kg
[2021-10-28] MEDS ORDERED: FOLI1TAB33 PO (16:44)
== END 2021-10-28 16:54 | disposition home or self-care (01) ==
LOC: PREOP 16:32
PROVIDERS: ATTEND Surgery
DX: Z01.818 Encounter for other preprocedural examination (principal)

== ENCOUNTER 2021-11-03 05:47 | Day surgery (SDC) | payer MEDICARE ==
[2021-11-03] VITALS (8 sets, daily range): BP systolic 93–132; BP diastolic 52–75
[~2021-11-03] VITALS: Ht 185.4 cm; Wt 96.4 kg
[~2021-11-03 05:47] MED LIST changes: +FOLI1TAB33 PO
[2021-11-03] MEDS ORDERED: LACTATED RINGERS 1,000 ML IV PRN (06:15)
[2021-11-03] MEDS ORDERED: ceFAZolin 2 GM IV Premixed 50 ML IV ONE (06:30)
[2021-11-03] MEDS ORDERED: HEParin (CENTRAL IV FLUSH) 500 UNIT/5 ML SYR ONE (06:41)
[2021-11-03] MEDS ORDERED: LIDOCAINE/EPI 2% 1:200,00 (XYLOCAINE) 20 ML VIAL ONE (06:41)
[2021-11-03] MEDS ORDERED: 0.9% SODIUM CHLORIDE PF INJ 20 ML VIAL ONE (06:41)
[2021-11-03 07:23] LABS: AMPHETAMINE SCREEN, URINE NEGATIVE (NEGATIVE); BARBITURATE SCREEN URINE NEGATIVE (NEGATIVE); BENZODIAZEPINES SCREEN URINE NEGATIVE (NEGATIVE); CANNABINOID SCREEN, URINE POSITIVE (NEGATIVE); COCAINE SCREEN URINE NEGATIVE (NEGATIVE); METHADONE STAT NEGATIVE (NEGATIVE); OPIATE SCREEN URINE NEGATIVE (NEGATIVE); OXYCODONE STAT NEGATIVE (NEGATIVE); PROPOXYPHENE STAT NEGATIVE (NEGATIVE); TRICYCLIC ANTIDEPRESSANTS SCRE NEGATIVE (NEGATIVE)
[2021-11-03] MEDS ORDERED: ceFAZolin 2 GM IV Premixed 50 ML ONE (07:53)
--- NOTE | 2021-11-03 08:02 | Progress Note-Pre Operative ---
Pre-Operative Progress Note H&P Reviewed The H&P was reviewed, patient examined and no changes noted. Date Seen by Provider: November 03, 2021 Time Seen by Provider: 07:45 Date H&P Reviewed: November 03, 2021 Time H&P Reviewed: 07:45 Pre-Operative Diagnosis: liver carcinoma SUSHANT PENA DO November 03, 2021 08:02
[2021-11-03] MEDS ORDERED: ONDANSETRON 4 MG/2 ML (SDV) Z0FRAN IVP PRN (08:30)
[2021-11-03] MEDS ORDERED: morphine INJ 10 MG/ML 1ML (SYR OR VIAL) IVP ONE (08:30)
--- NOTE | 2021-11-03 08:30 | Anesthesia-General Post-Op ---
MAC Patient Condition Mental Status/LOC: Same as Preop Cardiovascular: Satisfactory Nausea/Vomiting: Absent Respiratory: Satisfactory Pain: Controlled Complications: Absent Post Op Complications Complications None Follow Up Care/Instructions Patient Instructions None needed. Anesthesiology Discharge Order Discharge Order Patient is doing well, no complaints, stable vital signs, no apparent adverse anesthesia problems. No complications reported per nursing. KIKE PALOMO CRNA November 03, 2021 08:30
--- NOTE | 2021-11-03 08:54 | Progress Note-Post Operative ---
Post-Operative Progess Note Surgeon (s)/Guest Relations Associate (s) Surgeon SUSHANT PENA DO Guest Relations Associate: na Pre-Operative Diagnosis liver carcinoma Post-Operative Diagnosis same Procedure & Operative Findings Date of Procedure 11/03/21 Procedure Performed/Findings PROCEDURE: Right internal jugular port placement using ultrasound guidance. COMPLICATIONS: None. INDICATIONS: The patient is a 61 year old male with liver carcinoma. Patient understands the risks and benefits of port placement and wished to proceed with the procedure. Consent was signed on the chart. PROCEDURE: The patient was taken to the operating suite, was prepped and draped in the sterile fashion. A surgical pause was performed. Ultrasound was used to locate the internal jugular vein. Once located anesthetic was infiltrated above it. Using micro-access kit, the right internal vein was accessed. Dark nonpulsatile blood was withdrawn. The wire was inserted. Fluoroscopy assured proper placement. The needle was removed. The micro-access dilator was advanced over the wire and the wire was removed. The regular wire was inserted and fluoroscopy assured proper placement. The wire was then secured. Local anesthetic was used to anesthetize from the neck for tunneling down to the right chest and for pocket creation. A 15 blade scalpel was used to make an incision over the right chest. Cautery was used to dissect down to the pectoral fascia. A pocket was created with blunt dissection. The dilator sheath was then advanced over the wire under fluoroscopy and the dilator and wire were removed. The Groshong catheter was inserted through the sheath and the sheath was then removed. The Groshong wire was removed. The catheter was then tunneled to the right chest pocket. Fluoroscopy was used to cut to length and this was then attached to the port which was then placed within the pocket. The port was then accessed without difficulty. It was then flushed with saline and then heparin. The subcutaneous tissues were then reapproximated using 3-0 Vicryl. The areas were then washed and dried. Skin Affix was placed over incision. The insertion point of the neck Skin Affix was placed over the incision. The patient tolerated the procedure well without complication and was taken to recovery room in stable condition. Chest x-ray is pending. Anesthesia Type mac c local Estimated Blood Loss Estimated blood loss (mL): min Specimens/Packing Specimens Removed SUSHANT Franklin DO November 03, 2021 08:54
--- NOTE | 2021-11-03 08:55 | Discharge Inst-Simple/Standard ---
Discharge Inst-Standard Patient Instructions/Follow Up Plan of Care/Instructions/FU: 2 weeks barbie Activity as Tolerated: No Discharge Diet: Regular Diet Other Inst to Patient Follow up Appt: Make appointment for 2 week. Instructions: No lifting greater than 10 pounds. No strenuous activity. May shower in 24 hours, no tub bath or soaking. Use incentive spirometer at home as directed. No Smoking Skin/Wound Care: You have special glue over your incision that will fall off on it's own. Ice pack on 15 min and off 30 min and repeat for first 48 hours. This reduces swelling and discomfort. Symptoms to Report: Appetite Changes, Extremity Discoloration, Numbness/Tingling, Swelling Increased, Bleeding Excessive, Eyesight Changes, Pain Increased, Urine Color Change, Constipation(Persistent), Fever over 101 degree F, Pain/Pressure in chest, Urinating Difficulty, Cough Up/Vomit Blood, Heart Beat Irreg/Pounding, Pain/Pressure in jaw, Vaginal Bleeding Increase, Cramps in feet or legs, Lightheadedness, Pain/Pressure in shoulder, Diarrhea(Persistent), Memory Changes Suddenly, Questions/Concerns, Weight gain consecutive days, Dizziness/Fainting, Nausea/Vomiting, Shortness of Breath, Weight gain over 2 pounds If questions or concerns contact your physician Or seek help at emergency department. SUSHANT PENA DO November 03, 2021 08:55
--- NOTE | 2021-11-03 09:00 | Diagnostic Imaging Report ---
Indication: Port-A-Cath placement Frontal chest obtained at 0835 a.m. compared to 09/06/2021. Heart and mediastinal silhouette are normal in appearance. There is no acute pulmonary infiltrate or pneumothorax or pleural fluid. There is a right-sided Port-A-Cath now in place tip overlying the upper SVC. IMPRESSION: New Port-A-Cath seen with tip overlying upper SVC. No pneumothorax or pleural fluid following device placement. Dictated by: Dictated on workstation # [id number]
--- NOTE | 2021-11-03 09:05 | Diagnostic Imaging Report ---
Indication: Port-A-Cath placement Intraoperative fluoroscopy performed during Port-A-Cath placement. Single view obtained. 10.7 seconds of fluoroscopy time was used. Intraoperative view demonstrates Port-A-Cath in the right chest with catheter into the right internal jugular vein and catheter tip overlying the upper SVC. The study is otherwise limited. IMPRESSION: Intraoperative views demonstrate a Port-A-Cath placement as above. Dictated by: Dictated on workstation # [id number]
== END 2021-11-03 09:52 | disposition home or self-care (01) ==
LOC: SDC 05:47
PROVIDERS: ATTEND Surgery
DX: C22.0 Liver cell carcinoma (principal); I87.2 Venous insufficiency (chronic) (peripheral); F17.210 Nicotine dependence, cigarettes, uncomplicated; Z28.310 Unvaccinated for COVID-19; Z28.89 Immunization not carried out for other reason
CPT/HCPCS: 36561; 71045; 76000; 80306; 87081; C1788

== ENCOUNTER → 2021-11-19 | Outpatient (CLI) | payer MEDICARE ==
[~2021-11-19] MED LIST changes: +IOHEXOL 240 MGI/ML 50 ML (OMNIPAQUE) VIAL IV ONE; +IOHEXOL 300 MG/ML 50 ML (OMNIPAQUE 300) VIAL IV ONE
--- NOTE | 2021-11-19 12:59 | Diagnostic Imaging Report ---
INDICATION: Malfunctioning right chest wall port. Patient was brought to the fluoroscopic suite and placed on table in the supine position. [employer] radiograph of the chest does show a right chest wall port. The tip is malpositioned, directed retrograde in the upper right internal jugular vein. No interruption of the tubing is seen. Patient does appear to have a left-sided posterior sixth rib fracture. The port was already accessed by Oncology nursing. A small amount of Omnipaque 240 contrast was injected through the port during fluoroscopic visualization. There is opacification the port tubing. There is opacification of the right internal jugular vein. No definite jugular vein clot is seen. Contrast flows into the SVC. The port was flushed with saline. There was good blood return during aspiration. A total of 0.1 minutes of fluoroscopic time was utilized. IMPRESSION: Malpositioned right chest wall port which has the tip directed retrograde in the upper right internal jugular vein. The port is patent. The right jugular vein appears to be patent. Results were discussed with Dr. Herman prior to this dictation. Dictated by: Dictated on workstation # [id number]
== END ==
LOC: RAD 11:30
PROVIDERS: ATTEND Nurse Practitioner
DX: C22.0 Liver cell carcinoma (principal); T82.599A Other mechanical complication of unspecified cardiac and vascular devices and implants, initial encounter
CPT/HCPCS: 36598

== ENCOUNTER 2021-11-20 09:00 | Day surgery (SDC) | payer MEDICARE ==
[~2021-11-20] VITALS: Ht 185 cm; Wt 96.4 kg
[2021-11-20] VITALS (8 sets, daily range): BP systolic 109–137; BP diastolic 70–82
--- NOTE | 2021-11-20 08:48 | Pre-Op Note & Conscious Sedat ---
Pre-Operative Progress Note H&P Reviewed The H&P was reviewed, patient examined and no changes noted. Date H&P Reviewed: Nov 20, 2021 Time H&P Reviewed: 08:47 Pre-Op Diagnosis: Malpositioned tunneled central venous line Conscious Sedation Pre-Proced ASA Score 2 For ASA 3 and 4: Consider anesthesia and medical clearance. Also, for patients with a history of failed moderate sedation consider anesthesia. Airway Lungs Heart ASA score ASA 1: a normal healthy patient ASA 2: a patient with a mild systemic disease (mid diabetes, controlled hypertension, obesity ASA 3: a patient with a severe systemic disease that limits activity (angina, COPD, prior Myocardial infarction) ASA 4: a patient with an incapacitating disease that is a constant threat to life (CHF, renal failure) ASA 5: a moribund patient not expected to survive 24 hrs. (ruptured aneurysm) ASA 6: a declared brain- patient whose organs are being harvested. For emergent operations, add the letter E after the classification Mallampati Classification Grade 2 Sedation Plan Analgesia, Amnesia, Plan communicated to team members, Discussed options with patient/fam, Discussed risks with patient/fam The patient is an appropriate candidate to undergo the planned procedure, sedation, and anesthesia. The patient immediately re-assessed prior to indication. ADRIANNA ESPINOZA JR, MD Nov 20, 2021 08:48
[2021-11-20 08:52] LABS: MEAN CORPUSCULAR VOLUME 100 fL (80-99); MEAN PLATELET VOLUME 11.2 fL (9.0-12.2)
[2021-11-20 08:53] LABS: BASOPHILS # (AUTO) 0.1 10^3/uL (0.0-0.1); BASOPHILS % (AUTO) 1 % (0-10); EOSINOPHILS # (AUTO) 0.2 10^3/uL (0.0-0.3); EOSINOPHILS % (AUTO) 3 % (0-10); HEMATOCRIT 46 % (40-54); HEMOGLOBIN 15.2 g/dL (13.3-17.7); LYMPHOCYTES # (AUTO) 1.8 10^3/uL (1.0-4.0); LYMPHOCYTES % (AUTO) 22 % (12-44); MEAN CORPUSCULAR HEMOGLOBIN 33 pg (25-34); MEAN CORPUSCULAR HGB CONC 33 g/dL (32-36); MONOCYTES # (AUTO) 0.6 10^3/uL (0.0-1.0); MONOCYTES % (AUTO) 7 % (0-12); NEUTROPHILS # (AUTO) 5.3 10^3/uL (1.8-7.8); NEUTROPHILS % (AUTO) 67 % (42-75); PLATELET COUNT 126 10^3/uL (130-400)
[~2021-11-20 09:00] MED LIST changes: +CATHETER FLUSH 10 ML SYR IV PRN; +HEParin (CATH LAB) 1,000 ML IV ONE; -IOHEXOL 240 MGI/ML 50 ML (OMNIPAQUE) VIAL IV ONE; -IOHEXOL 300 MG/ML 50 ML (OMNIPAQUE 300) VIAL IV ONE; +LIDOCAINE 1% INJ 20 ML VIAL ONE; +NS IV 1000 ML 1,000 ML IV ONE; +NS IV 1000 ML 1,000 ML ONE
[2021-11-20 09:02] LABS: PROTHROMBIN TIME PATIENT 13.7 SEC (12.2-14.7)
[2021-11-20] MEDS ORDERED: MIDAZOLAM 5 MG/5 ML (VERSED) VIAL ONE (09:05)
[2021-11-20] MEDS ORDERED: fentaNYL INJ 100 MCG/2 ML AMP ONE (09:05)
[2021-11-20 09:15] LABS: CALCIUM 9.2 MG/DL (8.5-10.1); CREATININE SERUM 0.93 MG/DL (0.60-1.30); POTASSIUM 4.2 MMOL/L (3.6-5.0)
[2021-11-20] MEDS ORDERED: HEParin 1000 UNIT/ML (10ML VIAL) FOR BOLUS ONE (09:40)
--- NOTE | 2021-11-20 09:59 | Cardiac Cath Report ---
CARDIAC CATHETERIZATION DATE OF PROCEDURE: 11/20/2021 INDICATION: History of tunneled central venous catheter with port. HISTORY: The patient is a 61 year old male who underwent placement of a tunneled central venous catheter with port several weeks ago. The postprocedure chest x- ray showed good placement of the distal tip. However, the tip of the catheter migrated into the right jugular vein and this was confirmed by venogram performed on 11/19/2021. He is now referred for intravascular manipulation of the tip of the catheter to reposition the tip into the superior vena cava. PROCEDURES PERFORMED: 1. Repositioning of tunneled central venous catheter with port. 2. Fluoroscopic guidance for repositioning central venous catheter with port. 3. Right upper extremity venogram via central venous catheter with port. PROCEDURE DESCRIPTION: After informed consent and in the fasting state, the right femoral vein was accessed with a micropuncture technique. The micropuncture sheath was then exchanged for a 6 Syriac sheath. Under under fluoroscopic guidance, a 6 Syriac MP 1 catheter was then advanced over standard guidewire into the right internal jugular vein. The wire was removed. I then took a 300 cm Whisper extra-support coronary guidewire and folded this in half outside the body. The wire was then inserted through the guide catheter to create a loop. The loop was then manipulated to exit the distal tip of the guide catheter and snared over the distal tip of the central venous catheter. Using gentle retraction, the tunneled central venous catheter was then pulled down into the superior vena cava. The loop was released from the central venous catheter. A venogram was then performed through the central venous catheter confirming appropriate placement of the distal tip in the superior vena cava. The guide catheter was then removed over the coronary guide catheter. IMPRESSION: 1. Status post successful percutaneous repositioning of the distal tip of the tunneled central venous catheter which had migrated into the right jugular vein with the tip now positioned in the superior vena cava. 2. Venogram performed through the central venous catheter confirmed the distal tip to be in the superior vena cava and the catheter was patent. Certain portions of this document may have been dictated utilizing voice recognition technology. Inherent to this technology, typographical and grammatical errors may exist. As much as I am diligent to identify and correct these mistakes, some errors may remain in the document. ADRIANNA ESPINOZA JR, MD Nov 20, 2021 09:59
[2021-11-20] MEDS ORDERED: NS IV 1000 ML 1,000 ML IV SCH (10:00)
== END 2021-11-20 12:00 ==
LOC: CATH 09:00
PROVIDERS: ATTEND Internal Medicine Cardiovascular Disease
DX: Z45.2 Encounter for adjustment and management of vascular access device (principal); F17.210 Nicotine dependence, cigarettes, uncomplicated
CPT/HCPCS: 36597; 75820; 80048; 85025; 85610; C1760; C1887; C1894; 36415

== ENCOUNTER → 2022-01-01 | Outpatient (CLI) | payer MEDICARE ==
[~2022-01-01] MED LIST changes: +ASPI-999 PO; -CATHETER FLUSH 10 ML SYR IV PRN; +FOLI0.4T6 PO; -HEParin (CATH LAB) 1,000 ML IV ONE; +IOHEXOL 240 MGI/ML 50 ML (OMNIPAQUE) VIAL IV ONE; -LIDOCAINE 1% INJ 20 ML VIAL ONE; -NS IV 1000 ML 1,000 ML IV ONE; -NS IV 1000 ML 1,000 ML ONE
--- NOTE | 2022-01-01 12:18 | Diagnostic Imaging Report ---
Indication: Liver cancer IMPRESSION: Fluoroscopy was used in surgery by Dr. Lopez during central line placement. Image acquired shows the catheter tip ascending in the internal jugular vein. This appears similar to prior position on exam dated 11/19/2021. Dictated by: Dictated on workstation # [id number]
--- NOTE | 2022-01-01 13:09 | Diagnostic Imaging Report ---
INDICATION: Port-A-Cath evaluation. Frontal chest obtained at 09:48 a.m. and compared to 11/03/2021 FINDINGS: Heart and mediastinal silhouette are normal in appearance. The lungs are clear. There are old left-sided rib fractures. There is no pneumothorax or pleural fluid. There is a Port-A-Cath over the right chest. Catheter appears to enter the right internal jugular vein. Catheter has flipped cephalad compared to the prior study, tip now is above the film, probably in the internal jugular vein. IMPRESSION: Compared to the prior study, the Port-A-Cath catheter is flipped in a cephalad direction with catheter probably in the right internal jugular vein catheter tip is above the level of the film. Chest is otherwise normal. Dictated by: Dictated on workstation # [id number]
== END ==
LOC: RAD 09:21
PROVIDERS: ATTEND Surgery
DX: Z45.2 Encounter for adjustment and management of vascular access device (principal); C22.0 Liver cell carcinoma
CPT/HCPCS: 71045

== ENCOUNTER 2022-01-04 11:56 | Outpatient (CLI) | payer MEDICARE ==
[~2022-01-04] VITALS: Ht 185.4 cm; Wt 97.5 kg
[~2022-01-04 11:56] MED LIST changes: -ASPI-999 PO; -FOLI0.4T6 PO; -IOHEXOL 240 MGI/ML 50 ML (OMNIPAQUE) VIAL IV ONE
[2022-01-04] MEDS ORDERED: PANT40TA52 PO (13:25)
[2022-01-04] MEDS ORDERED: ASPI-999 PO (13:25)
[2022-01-04] MEDS ORDERED: FOLI0.4T6 PO (13:25)
== END 2022-01-04 13:49 | disposition home or self-care (01) ==
LOC: PREOP 11:56
PROVIDERS: ATTEND Surgery
DX: Z01.818 Encounter for other preprocedural examination (principal)

== ENCOUNTER 2022-01-06 06:46 | Day surgery (SDC) | payer MEDICARE ==
[~2022-01-06] VITALS: Ht 185.4 cm; Wt 97.5 kg
[2022-01-06] VITALS (8 sets, daily range): BP systolic 104–122; BP diastolic 59–71
[~2022-01-06 06:46] MED LIST changes: +ASPI-999 PO; +FOLI0.4T6 PO
[2022-01-06] MEDS ORDERED: HEParin (CENTRAL IV FLUSH) 500 UNIT/5 ML SYR ONE (07:02)
[2022-01-06] MEDS ORDERED: LIDOCAINE/EPI 2% 1:200,00 (XYLOCAINE) 20 ML VIAL ONE ×2 (07:02→08:08)
[2022-01-06] MEDS ORDERED: 0.9% SODIUM CHLORIDE PF INJ 20 ML VIAL ONE (07:02)
[2022-01-06] MEDS ORDERED: PROPOFOL INJECTION 50 ML IV ONE ×2 (07:18→08:58)
[2022-01-06] MEDS ORDERED: fentaNYL INJ 100 MCG/2 ML AMP ONE (07:18)
[2022-01-06] MEDS ORDERED: MIDAZOLAM 2 MG/2 ML (VERSED) VIAL ONE (07:18)
[2022-01-06] MEDS ORDERED: LACTATED RINGERS 1,000 ML IV PRN ×2 (07:30→09:30)
[2022-01-06] MEDS ORDERED: ceFAZolin 2 GM IV Premixed 50 ML IV ONE (07:30)
--- NOTE | 2022-01-06 08:01 | Progress Note-Pre Operative ---
Pre-Operative Progress Note Date of Available H&P: Jan 04, 2022 Date H&P Reviewed: Jan 06, 2022 Time H&P Reviewed: 08:01 History & Physical: H&P Reviewed, Patient Examed, No changes noted Pre-Operative Diagnosis: HCC SUSHANT PENA DO Jan 06, 2022 08:01
--- NOTE | 2022-01-06 09:16 | Discharge Inst-Simple/Standard ---
Discharge Inst-Standard Patient Instructions/Follow Up Plan of Care/Instructions/FU: 2 weeks John Activity as Tolerated: No Discharge Diet: Regular Diet Other Inst to Patient Follow up Appt: Make appointment for 2 week. Instructions: No lifting greater than 10 pounds. No strenuous activity. May shower in 24 hours, no tub bath or soaking. Use incentive spirometer at home as directed. No Smoking Skin/Wound Care: You have special glue over your incision that will fall off on it's own. Ice pack on 15 min and off 30 min and repeat for first 48 hours. This reduces swelling and discomfort. Symptoms to Report: Appetite Changes, Extremity Discoloration, Numbness/Tingling, Swelling Increased, Bleeding Excessive, Eyesight Changes, Pain Increased, Urine Color Change, Constipation(Persistent), Fever over 101 degree F, Pain/Pressure in chest, Urinating Difficulty, Cough Up/Vomit Blood, Heart Beat Irreg/Pounding, Pain/Pressure in jaw, Vaginal Bleeding Increase, Cramps in feet or legs, Lightheadedness, Pain/Pressure in shoulder, Diarrhea(Persistent), Memory Changes Suddenly, Questions/Concerns, Weight gain consecutive days, Dizziness/Fainting, Nausea/Vomiting, Shortness of Breath, Weight gain over 2 pounds If questions or concerns contact your physician Or seek help at emergency department. SUSHANT PENA DO Jan 06, 2022 09:16
--- NOTE | 2022-01-06 09:19 | Diagnostic Imaging Report ---
INDICATION: Fluoroscopy for port placement. FINDINGS: Fluoroscopy was provided in the OR during port placement. 208 seconds of fluoroscopic time was utilized. Two images were obtained demonstrating a left-sided port with the tip overlying the lower IVC. IMPRESSION: Fluoroscopy for port placement. Dictated by: Dictated on workstation # [id number]
--- NOTE | 2022-01-06 09:20 | Anesthesia-General Post-Op ---
MAC Patient Condition Mental Status/LOC: Same as Preop Cardiovascular: Satisfactory Nausea/Vomiting: Absent Respiratory: Satisfactory Pain: Controlled Complications: Absent Post Op Complications Complications None Follow Up Care/Instructions Patient Instructions None needed. Anesthesiology Discharge Order Discharge Order Patient is doing well, no complaints, stable vital signs, no apparent adverse anesthesia problems. No complications reported per nursing. WANDA KOVACS CRNA Jan 06, 2022 09:20
--- NOTE | 2022-01-06 09:22 | Progress Note-Post Operative ---
Post-Operative Progess Note Surgeon (s)/Green Chain Off Bearer (s) Surgeon SUSHANT PENA DO Green Chain Off Bearer: na Pre-Operative Diagnosis HCC Post-Operative Diagnosis same Procedure & Operative Findings Date of Procedure 01/06/22 Procedure Performed/Findings PROCEDURE: Left internal jugular port placement using ultrasound guidance. Right Port removal. COMPLICATIONS: None. INDICATIONS: The patient is a 61 year old male needing port. Current port has flipped twice and not functioning. Patient understands the risks and benefits of port placement and removal and wished to proceed with the procedure. Consent was signed on the chart. PROCEDURE: The patient was taken to the operating suite, was prepped and draped in the sterile fashion. A surgical pause was performed. Ultrasound was used to locate the internal jugular vein. Once located anesthetic was infiltrated above it. Using micro-access kit, the right internal vein was accessed. Dark nonpulsatile blood was withdrawn. The wire was inserted. Fluoroscopy assured proper placement. The needle was removed. The micro-access dilator was advanced over the wire and the wire was removed. The regular wire was inserted and fluoroscopy assured proper placement. The wire was then secured. Local anesthetic was used to anesthetize from the neck for tunneling down to the right chest and for pocket creation. A 15 blade scalpel was used to make an incision over the left chest. Cautery was used to dissect down to the pectoral fascia. A pocket was created with blunt dissection. The dilator sheath was then advanced over the wire under fluoroscopy and the dilator and wire were removed. The Groshong catheter was inserted through the sheath and the sheath was then removed. The Groshong wire was removed. The catheter was then tunneled to the right chest pocket. Fluoroscopy was used to cut to length and this was then attached to the port which was then placed within the pocket. The port was then accessed without difficulty. It was then flushed with saline and then heparin. The subcutaneous tissues were then reapproximated using 3-0 Vicryl. The areas were then washed and dried. Skin Affix was placed over incision. The insertion point of the neck Skin Affix was placed over the incision. Local anesthetic was infiltrated to the area around the port. A number 15 blade scalpel was used to make an incision. Cautery was used to dissect down to the port which was then grasped and then dissected around. The catheter was removed in its entirety. The port was then able to be dissected out of the pocket and elevated. The wound was then irrigated with copious amounts of irrigation. Hemostasis had been achieved. The subcutaneous tissues were then reapproximated using 3-0 Vicryl. The area was then washed and dried and Skin Affix placed over the incision. The patient tolerated the procedure well without complication and was taken to recovery room in stable condition. Chest x-ray is pending. Anesthesia Type mac c local Estimated Blood Loss Estimated blood loss (mL): minimal Specimens/Packing Specimens Removed na SUSHANT PENA DO Jan 06, 2022 09:22
--- NOTE | 2022-01-06 09:57 | Diagnostic Imaging Report ---
INDICATION: Left-sided Groshong placement. A catheter via left IJ approach has its tip at the lower SVC in good position with no pneumothorax. Right IJ present on the comparison study of 11/03/2021 has since been removed. No focal consolidation. No effusion or pneumothorax. Impression: No acute appearing abnormality, the intervally placed left IJ in good position. Dictated by: Dictated on workstation # [id number]
== END 2022-01-06 10:38 | disposition home or self-care (01) ==
LOC: SDC 06:46
PROVIDERS: ATTEND Surgery
DX: C22.0 Liver cell carcinoma (principal); I87.2 Venous insufficiency (chronic) (peripheral); F17.210 Nicotine dependence, cigarettes, uncomplicated; Z79.82 Long term (current) use of aspirin
CPT/HCPCS: 36561; 71045; 76000; 87081; C1788

== ENCOUNTER → 2022-01-14 | Outpatient (CLI) | payer MEDICARE ==
[~2022-01-14] MED LIST changes: +IOHEXOL 240 MGI/ML 50 ML (OMNIPAQUE) VIAL IV ONE
--- NOTE | 2022-01-14 15:00 | Diagnostic Imaging Report ---
INDICATION: Malfunctioning port. Time of Exam: 12:53 PM Correlation is made with prior chest radiograph from 01/06/2022. Left chest wall port appears to be in good position. Tip overlies right atrium. There is no definite kinking or interruption of the port tubing. Lungs are clear. There is no pneumothorax. There is no effusion. IMPRESSION: Satisfactory positioning of the port. Dictated by: Dictated on workstation # [id number]
--- NOTE | 2022-01-14 16:10 | Diagnostic Imaging Report ---
INDICATION: Malfunctioning port. Patient brought to fluoroscopy suite, placed on the table in the supine position. The port was already accessed by oncology nursing. 40 mL Omnipaque 240 contrast was injected into the port during fluoroscopic observation. 0.4 minutes of fluoroscopic time was utilized. Images demonstrate left chest wall port with tip overlying the right atrium. No fracture or interruption of the port tubing is seen. There is no extravasation of contrast. Normal flow of contrast from the port tip is noted into the right atrium. There is normal flushing of the port as well as aspiration of blood. IMPRESSION: Normal port check. Dictated by: Dictated on workstation # [id number]
== END ==
LOC: RAD 11:44
PROVIDERS: ATTEND Surgery
DX: T82.514A Breakdown (mechanical) of infusion catheter, initial encounter (principal)
CPT/HCPCS: 36598; 71046

== ENCOUNTER 2022-09-27 04:45 | Emergency (ER) | payer MEDICARE, MEDICAID ==
[~2022-09-27] VITALS: Ht 185.5 cm; Wt 94.3 kg
[~2022-09-27 04:45] MED LIST changes: -IOHEXOL 240 MGI/ML 50 ML (OMNIPAQUE) VIAL IV ONE
[2022-09-27] MEDS ORDERED: fentaNYL INJ 100 MCG/2 ML AMP IVP STA (05:10)
[2022-09-27] MEDS ORDERED: NS IV 500 ML 500 ML IV ONE (05:15)
--- NOTE | 2022-09-27 05:21 | ED General ---
General Chief Complaint: Respiratory Problems Stated Complaint: LUNG PAIN Source of Information: Patient Exam Limitations: No Limitations (GREYSON LOPEZ MD) History of Present Illness Date Seen by Provider: Sep 27, 2022 Time Seen by Provider: 05:02 Initial Comments Here with report of right chest wall and right upper quadrant pain. Hurts with deep breathing or moving. States he believes that he may have dropped the lung from coughing. He has had pneumothorax previously on the left. Does have history of liver cancer status post ablation that apparently is stable at this point. He does follow with Dr. Herman and does have to give blood due to high blood cell counts but has not had do that for a few weeks. He did try his hydrocodone that he takes as needed but those were not really working and he is out of those now. Denies fever or chills. Admits to cough and mild runny nose. Denies nausea, vomiting or diarrhea. Does report decreased appetite which may be related to pain. Timing/Duration: Getting Worse, Other (3 weeks) Severity: Moderate Associated Systoms: Chest Pain (Right lower chest wall), Cough; No Fever/Chills; Loss of Appetite; No Nausea/Vomiting; Shortness of Air (GREYSON LOPZE MD) Allergies and Home Medications Allergies Coded Allergies: aspirin (Verified Allergy, Mild, N/V, 12/01/20) Patient Home Medication List Home Medication List Reviewed: Yes (GREYSON LOPEZ MD) Aspirin (Aspirin) 81 Mg Tab.chew, 81 MG PO, (Reported) Entered as Reported by: DANIELLA ELLSWORTH on 01/04/22 1325 Folic Acid (Folic Acid) 0.4 Mg Tablet, 0.4 MG PO, (Reported) Entered as Reported by: DANIELLA ELLSWORTH on 01/04/22 1325 Hydrocodone/Acetaminophen (Hydrocodone-Acetamin 5-325 mg) 5 Mg-325 Mg Tablet, 1 TAB PO Q4H PRN for PAIN-MODERATE (5-7) Prescribed by: BLADIMIR OSMAN MD on 09/27/22 0714 Pantoprazole Sodium (Pantoprazole Sodium) 40 Mg Tablet.dr, 40 MG PO DAILY, (Reported) Entered as Reported by: DANIELLA ELLSWORTH on 01/04/22 1325 Review of Systems Review of Systems Constitutional: see HPI; No chills, No fever EENTM: see HPI Respiratory: cough, short of breath Cardiovascular: see HPI; No palpitations Gastrointestinal: No nausea, No vomiting Genitourinary: no symptoms reported Musculoskeletal: joint pain; No neck pain Skin: no symptoms reported Psychiatric/Neurological: No Symptoms Reported (GREYSON LOPEZ MD) Past Tgikajl-Apyeea-Qowmda Hx Patient Social History Tobacco Use?: Yes Tobacco type used: Cigarettes Substance use?: Yes Substance type: Marijuana Alcohol Use?: No (GREYSON LOPEZ MD) Immunizations Up To Date Tetanus Booster (TDap): Unknown PED Vaccines UTD: No First/Initial COVID19 Vaccinat: NO Second COVID19 Vaccination Berhane: NO Third COVID19 Vaccination Date: NO (GREYSON LOPEZ MD) Seasonal Allergies Seasonal Allergies: No (GREYSON LOPEZ MD) Past Medical History Surgery/Hospitalization HX: CHOLECYSTECTOMY 12/04/[address] PENA LEFT CHEST TUBE 10/2010 SECONDARY TO TRAUMA BILATERAL CARPAL TUNNEL SURGERY X 2 CERVICAL SPINE SURGERY FINGER SURGERY COLONOSCOPIES Surgeries: Yes (BILAT CARPAL TUNNEL X2, NECK, FINGER, COLONOSCOPIES) Gallbladder, Orthopedic Respiratory: Yes (LEFT CHEST TUBE 2010 SECONDARY TO TRAUMA) COPD Currently Using CPAP: No Currently Using BIPAP: No Cardiac: No Neurological: Yes (? 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) Headaches /Migraines, Neuropathy, Stroke Reproductive Disorders: No Sexually Transmitted Disease: No HIV/AIDS: No Genitourinary: Yes Kidney Stones Gastrointestinal: No (LIVER CANCER) Gastroesophageal Reflux, Liver Disease/Jaundice, Chronic Constipation, Gall Bladder Disease Musculoskeletal: Yes (CHRONIC NECK/ BACK PAIN; HIP AND LEG PAIN; SHOULDER PAIN; L FOOT FX;GWEN CT) Arthritis Endocrine: No HEENT: Yes (READING GLASSES) Loss of Vision: Denies Hearing Impairment: Denies Cancer: Yes Liver Psychosocial: Yes (POLYSUBSTANCE ABUSE) Integumentary: No Blood Disorders: No Adverse Reaction/Blood Tranf: No (N/A) (GREYSON LOPEZ MD) Family Medical History Reviewed Nursing Family Hx (GREYSON LOPEZ MD) No Pertinent Family Hx SOCIAL HISTORY: -SMOKES 3 PPD -ETOH--HEAVY/DAILY USE--CLAIMS NO RECENT USE -DRUGS--+ IV METH, COCAINE, HEROIN, ALSO THC, RX PILLS (GREYSON LOPEZ MD) Physical Exam-Suspected Sepsis Physical Exam Vital Signs Vital Signs - First Documented 09/27/22 04:55 Temp 36.4 Pulse 93 Resp 20 B/P (MAP) 138/86 (103) Pulse Ox 95 O2 Delivery Room Air (BLADIMIR OSMAN DO) Vital Signs Capillary Refill : (GREYSON LOPEZ MD) Height, Weight, BMI Height: 6'1" Weight: 220lbs. oz. 99.100755vx; 28.36 BMI Method:Stated General Appearance: No Apparent Distress, WD/WN HEENT: PERRL/EOMI, Pharyngeal Erythema, Other (Left eye with some redness especially medially) Neck: Non Tender, Supple Respiratory: Lungs Clear, Normal Breath Sounds Cardiovascular: Regular Rate, Rhythm, No Murmur, Other (Tender along the right lower chest wall) Gastrointestinal: Soft, Tenderness (Right upper quadrant) Back: Normal Inspection, No CVA Tenderness, No Vertebral Tenderness Extremity: Normal Range of Motion, Non Tender Neurologic/Psychiatric: Alert, Oriented x3 Skin: normal color, warm/dry (GREYSON LOPEZ MD) Focused Exam Lactate Level 09/27/22 05:08: Lactic Acid Level 1.62 (BLADIMIR OSMAN DO) Lactic Acid Level Laboratory Tests Test 09/27/22 05:08 Lactic Acid Level 1.62 MMOL/L (0.50-2.00) (BLADIMIR OSMAN DO) Progress/Results/Core Measures Suspected Sepsis SIRS Temperature: Pulse: Respiratory Rate: Laboratory Tests 09/27/22 05:08: White Blood Count 10.2 Blood Pressure / Mean: 09/27/22 05:08: Lactic Acid Level 1.62 Laboratory Tests 09/27/22 05:08: Creatinine 0.85, Platelet Count 139, Total Bilirubin 1.1H (GREYSON LOPEZ MD) Results/Orders Lab Results Laboratory Tests Test 09/27/22 05:08 Range/Units White Blood Count 10.2 4.3-11.0 10^3/uL Red Blood Count 4.97 4.30-5.52 10^6/uL Hemoglobin 16.6 13.3-17.7 g/dL Hematocrit 48 40-54 % Mean Corpuscular Volume 96 80-99 fL Mean Corpuscular Hemoglobin 33 25-34 pg Mean Corpuscular Hemoglobin Concent 35 32-36 g/dL Red Cell Distribution Width 12.9 10.0-14.5 % Platelet Count 139 130-400 10^3/uL Mean Platelet Volume 10.2 9.0-12.2 fL Immature Granulocyte % (Auto) 0 % Neutrophils (%) (Auto) 63 42-75 % Lymphocytes (%) (Auto) 23 12-44 % Monocytes (%) (Auto) 9 0-12 % Eosinophils (%) (Auto) 3 0-10 % Basophils (%) (Auto) 1 0-10 % Neutrophils # (Auto) 6.4 1.8-7.8 10^3/uL Lymphocytes # (Auto) 2.4 1.0-4.0 10^3/uL Monocytes # (Auto) 0.9 0.0-1.0 10^3/uL Eosinophils # (Auto) 0.3 0.0-0.3 10^3/uL Basophils # (Auto) 0.1 0.0-0.1 10^3/uL Immature Granulocyte # (Auto) 0.0 0.0-0.1 10^3/uL Prothrombin Time 13.9 12.2-14.7 SEC INR Comment 1.0 0.8-1.4 Activated Partial Thromboplast Time 48 H 24-35 SEC Sodium Level 139 135-145 MMOL/L Potassium Level 3.7 3.6-5.0 MMOL/L Chloride Level 106 98-107 MMOL/L Carbon Dioxide Level 20 L 21-32 MMOL/L Anion Gap 13 5-14 MMOL/L Blood Urea Nitrogen 10 7-18 MG/DL Creatinine 0.85 0.60-1.30 MG/DL Estimat Glomerular Filtration Rate 97 BUN/Creatinine Ratio 12 Glucose Level 122 H 70-105 MG/DL Lactic Acid Level 1.62 0.50-2.00 MMOL/L Calcium Level 8.9 8.5-10.1 MG/DL Corrected Calcium 8.9 8.5-10.1 MG/DL Total Bilirubin 1.1 H 0.1-1.0 MG/DL Aspartate Amino Transf (AST/SGOT) 32 5-34 U/L Alanine Aminotransferase (ALT/SGPT) 28 0-55 U/L Alkaline Phosphatase 131 40-136 U/L Total Protein 6.9 6.4-8.2 GM/DL Albumin 4.0 3.2-4.5 GM/DL (BLADIMIR OSMAN DO) My Orders Orders - BLADIMIR OSMAN DO Iohexol Injection (Omnipaque 350 Mg/Ml 1 (09/27/22 06:30) Ns (Ivpb) (Sodium Chloride 0.9% Ivpb Bag (09/27/22 06:30) Sodium Chloride Flush (Catheter Flush Sy (09/27/22 06:30) (BLADIMIR OSMAN DO) Medications Given in ED Current Medications Medications Dose Ordered Sig/[place] Route Start Time Stop Time Status Last Admin Dose Admin Iohexol 100 ml ONCE ONCE IV 09/27/22 06:30 09/27/22 06:31 DC 09/27/22 06:24 80 ML Ondansetron HCl 8 mg ONCE ONCE IVP 09/27/22 06:00 09/27/22 06:01 DC 09/27/22 06:07 8 MG Sodium Chloride 10 ml NEEDED PRN IV 09/27/22 06:30 09/27/22 06:24 10 ML Sodium Chloride 100 ml ONCE ONCE IV 09/27/22 06:30 09/27/22 06:31 DC 09/27/22 06:24 70 ML Sodium Chloride 500 ml @ 0 mls/hr Q0M ONCE IV 09/27/22 05:15 09/27/22 05:16 DC 09/27/22 05:19 999 MLS/HR (BLADIMIR OSMAN DO) Vital Signs/I&O 09/27/22 04:55 Temp 36.4 Pulse 93 Resp 20 B/P (MAP) 138/86 (103) Pulse Ox 95 O2 Delivery Room Air (BLADIMIR OSMAN DO) Vital Signs/I&O Capillary Refill : (GREYSON LOPEZ MD) Progress Note : Progress Note Seen and evaluated. IV, labs including CBC, CMP and coags. Normal saline 500 mL bolus. Chest x-ray ordered. Sepsis protocol initiated and blood cultures and lactic acid will be drawn. I have reviewed previous labs which do show hemoglobin in the 15-16 range typically. He does have history of liver cancer with biopsy-proven malignancy status post ablation. We will give fentanyl 75 mcg IV for pain. Monitor patient. Differential diagnosis includes pneumonia, lung mass, rib fracture, liver mass, intra-abdominal infection or malignancy, dehydration, electrolyte abnormality 0540: Chest x-ray reviewed by me and shows no obvious infiltrate and no pneumothorax on my interpretation. CBC resulted and shows normal white count with hemoglobin of 16.6. Chemistries showed electrolytes grossly normal with slightly elevated glucose. Total bilirubin slightly elevated at 1.1 but otherwise normal liver function. Lactic acid is 1.62 and normal. I have ordered CT of the chest abdomen and pelvis and we will do the chest as an angiogram in the abdomen and pelvis with contrast. Does have history of stroke and so we will want to rule out pulmonary embolism as the cause given his history of cancer. This was discussed with the patient who agrees. We will repeat normal saline bolus after CT scan. Serum creatinine is normal currently. Monitor patient. (GREYSON LOPEZ MD) Diagnostic Imaging Diagonstic Imaging: Xray Plain Films/CT/US/NM/MRI: chest Comments No obvious infiltrate or pneumothorax on my interpretation pending radiology report. Reviewed: Reviewed by Me Diagonstic Imaging: CT Plain Films/CT/US/NM/MRI: chest, abdomen, pelvis (GREYSON LOPEZ MD) Departure Communication (Admissions) 0708: Radiology montes dot inform there may be a very small peripheral PE. It is not definitive but there is enough that makes him concerned. This would correlate with the patients symptoms of R sided abd pain. Overall however there is no evidence for massive PE. He is hemodynamically stable with otherwise normal vital signs. He will have to have close monitoring given his history of liver disease however his INR is currently normal I think it safe to put him on Eliquis and give him primary care follow-up. There is no evidence for pneumonia, pneumothorax, broken ribs. No acute intra-abdominal pathology. I have independently reviewed all of the CT imaging. (BLADIMIR OSMAN DO) Impression Primary Impression: Right-sided chest pain Disposition: HOME, SELF-CARE Condition: Stable Departure-Patient Inst. Referrals: FANNIE KHALIL DO (PCP/Family) Primary Care Physician Patient Instructions: Chest Pain, Pulmonary Embolism (Blood Clot in the Lungs) (DC), Opioids for Short-Term Treatment of Pain ED Add. Discharge Instructions: As discussed the radiologist thinks there may be a pulmonary embolism, a blood clot, in your right lower lung. This is not definitive on the CT scan but is concerning enough that I think we should go ahead and treat, especially given your pain in the area. With that I recommend you take Eliquis as prescribed. It is important that you do not miss any doses. Is also very important that you follow-up with your primary care doctor for further management and treatment recommendations. Return to the emergency department for any severe pain is not controlled pain medication, severe shortness of breath or if your symptoms change in any way concerning to you All discharge instructions reviewed with patient and/or family. Voiced understanding. Scripts Apixaban (Eliquis) 5 Mg Tablet 5 MG PO BID for 30 Days, #74 TAB TAKE 2 TABLETS BID X 7 DAYS, THEN 1 TABLET BID Prov: BLADIMIR OSMAN DO 09/27/22 Hydrocodone/Acetaminophen (Hydrocodone-Acetamin 5-325 mg) 5 Mg-325 Mg Tablet 1 TAB PO Q4H PRN for PAIN-MODERATE (5-7) for 3 Days, #12 TAB Prov: BLADIMIR OSMAN DO 09/27/22 GREYSON LOPEZ MD Sep 27, 2022 05:21 BLADIMIR OSMAN DO Sep 27, 2022 07:14
[2022-09-27 05:23] LABS: BASOPHILS # (AUTO) 0.1 10^3/uL (0.0-0.1); BASOPHILS % (AUTO) 1 % (0-10); EOSINOPHILS # (AUTO) 0.3 10^3/uL (0.0-0.3); EOSINOPHILS % (AUTO) 3 % (0-10); HEMATOCRIT 48 % (40-54); HEMOGLOBIN 16.6 g/dL (13.3-17.7); LYMPHOCYTES # (AUTO) 2.4 10^3/uL (1.0-4.0); LYMPHOCYTES % (AUTO) 23 % (12-44); MEAN CORPUSCULAR HEMOGLOBIN 33 pg (25-34); MEAN CORPUSCULAR HGB CONC 35 g/dL (32-36); MEAN CORPUSCULAR VOLUME 96 fL (80-99); MEAN PLATELET VOLUME 10.2 fL (9.0-12.2); MONOCYTES # (AUTO) 0.9 10^3/uL (0.0-1.0); MONOCYTES % (AUTO) 9 % (0-12); NEUTROPHILS # (AUTO) 6.4 10^3/uL (1.8-7.8); NEUTROPHILS % (AUTO) 63 % (42-75); PLATELET COUNT 139 10^3/uL (130-400); WHITE BLOOD COUNT 10.2 10^3/uL (4.3-11.0)
[2022-09-27 05:29] LABS: POTASSIUM 3.7 MMOL/L (3.6-5.0)
[2022-09-27 05:30] LABS: CALCIUM 8.9 MG/DL (8.5-10.1)
[2022-09-27 05:31] LABS: TOTAL PROTEIN 6.9 GM/DL (6.4-8.2)
[2022-09-27 05:32] LABS: PROTHROMBIN TIME PATIENT 13.9 SEC (12.2-14.7)
[2022-09-27 05:33] LABS: BILIRUBIN,TOTAL 1.1 MG/DL (0.1-1.0)
[2022-09-27 05:35] LABS: CREATININE SERUM 0.85 MG/DL (0.60-1.30)
[2022-09-27] MEDS ORDERED: ONDANSETRON 4 MG/2 ML (SDV) Z0FRAN IVP ONE (06:00)
[2022-09-27] MEDS ORDERED: ONDANSETRON 4 MG/2 ML (SDV) Z0FRAN ONE (06:02)
--- NOTE | 2022-09-27 06:16 | Diagnostic Imaging Report ---
EXAMINATION: Chest 1 view HISTORY: SOA, right chest wall pain COMPARISON: None available. FINDINGS: Heart size and pulmonary vasculature are normal. The lungs are clear without consolidation, pleural effusion, or pneumothorax. The osseous structures are intact. A left-sided Ituk-F-Mbeofvsw is present. IMPRESSION: 1. No acute radiographic abnormality in the chest. Dictated by: Dictated on workstation # [id number]
[2022-09-27] MEDS ORDERED: CATHETER FLUSH 10 ML SYR IV PRN (06:30)
[2022-09-27] MEDS ORDERED: NS 100 ML (IVPB) BAG IV ONE (06:30)
[2022-09-27] MEDS ORDERED: IOHEXOL 350 MG/ML 100 ML (OMNIPAQUE 350) VIAL IV ONE (06:30)
[2022-09-27] MEDS ORDERED: ACHD5005 PO (07:14)
--- NOTE | 2022-09-27 07:14 | Diagnostic Imaging Report ---
EXAMINATION: CT angiography of the chest, CT of the abdomen and pelvis. TECHNIQUE: Contrast enhanced thin section helical images were obtained through the chest, abdomen and pelvis with intravenous contrast timed for the optimal opacification of the arterial structures of the chest per CTA protocol. Post-processing, reconstructions and interpretation of angiographic images of the vessels was performed. 3D MIP reconstructions were performed and reviewed. All CT scans use one or more of the following dose optimizing techniques: automated exposure control, MA and/or KvP adjustment based on a patient size and exam type, or iterative reconstruction. HISTORY: Chest and right upper quadrant abdominal pain, history of liver cancer. COMPARISON: 09/11/2021 FINDINGS: Vascular: Small filling defects seen within the right lower lobe pulmonary arteries. Mild aneurysmal dilatation of the ascending thoracic aorta measuring up to 4.0 cm. Thyroid: The thyroid is normal. Mediastinum: Heart size is normal without significant pericardial effusion. Mildly enlarged mediastinal lymph nodes measuring up to 1.9 x 0.8 cm. Lungs and airways: The lungs are clear without consolidation, pleural effusion, or pneumothorax. There is atelectasis within the dependent lungs. The airways are normal. Solid organs: Multiple hypoattenuating lesions within the liver measuring up to 3.4 cm in the left hepatic lobe. These are decreased in size from 09/11/2021. There is diffuse nodular contour of the liver which is hepatic steatosis. The portal veins are patent. The gallbladder is surgically absent. There is no biliary ductal dilation. Pancreas is normal. Spleen is normal. Adrenal glands are normal. The kidneys are normal without hydronephrosis. Bowel: The stomach and small bowel are normal without obstruction. The colon and appendix are normal. Peritoneum: There is trace free fluid within the pelvis. No loculated fluid collection or free air. No suspicious lymphadenopathy. Vasculature: Calcification of the aorta without aneurysm. Musculoskeletal: Degenerative changes of the spine without suspicious osseous lesion or compression fracture. Pelvis: The prostate gland is normal. The urinary bladder is normal. IMPRESSION: 1. Small filling defect in the right lower lobe pulmonary arteries which could represent pulmonary embolus although there is some artifact within the pulmonary arteries which could cause this appearance. 2. Decreasing size of the hepatic lesions compared to prior exam. No other acute abnormality is seen within the abdomen or pelvis. Critical finding. Results communicated to the attending physician by Dr. Jovanni Munson at 7:08 AM on 09/27/2022. Dictated by: Dictated on workstation # [id number]
[2022-09-27] MEDS ORDERED: APIXABAN 5 MG (ELIQUIS) TABLET PO SCH (07:15)
[2022-09-27] MEDS ORDERED: APIX5TAB PO (07:16)
[2022-09-27 07:35] VITALS: BP 127/74
== END 2022-09-27 07:40 | disposition home or self-care (01) ==
LOC: EDUNIT# 04:45 → ER 04:48
DX: R07.89 Other chest pain (principal); F17.210 Nicotine dependence, cigarettes, uncomplicated; Z87.09 Personal history of other diseases of the respiratory system; Z85.05 Personal history of malignant neoplasm of liver; Z90.49 Acquired absence of other specified parts of digestive tract; Z97.8 Presence of other specified devices; Z88.6 Allergy status to analgesic agent; Z28.310 Unvaccinated for COVID-19
CPT/HCPCS: 36415; 71045; 71275; 74177; 80053; 83605; 85025; 85610; 85730; 87040

== ENCOUNTER → 2023-03-21 | Outpatient (CLI) | payer MEDICARE, MEDICAID ==
[~2023-03-21] MED LIST changes: +APIX5TAB PO
== END ==
LOC: LAB 11:48
PROVIDERS: ATTEND Family Medicine
DX: K65.1 Peritoneal abscess (principal)
CPT/HCPCS: 87070; 87077; 87186; 87205

== ENCOUNTER → 2023-04-05 | Outpatient (CLI) | payer MEDICARE, MEDICAID ==
--- NOTE | 2023-04-05 16:51 | Diagnostic Imaging Report ---
INDICATION: History of liver carcinoma, cough, concern for foreign body. TECHNIQUE: Two view chest at 11:14 AM. CORRELATION STUDY: CT chest 09/27/2022, Chest radiograph 09/27/2022. FINDINGS: Left-sided IJ Tguzom-n-Ykaz catheter tip is well into the right atrium. Heart size, mediastinum, and vasculature are overall within normal limits. Lung acuna are mildly hyperinflated but clear. No infiltrate or effusion. Partially visualized cervical spinal fusion hardware. Small BB-like density projects over the soft tissues of the anterior mid chest. Otherwise, no discrete foreign body is suggested on this examination. Old healed left posterolateral rib fractures. IMPRESSION: Small BB-like density projects over the anterior mid chest. This may be a marker versus foreign body. Clinical correlation recommended. Dictated by: Dictated on workstation # [id number]
== END ==
LOC: RAD 10:57
PROVIDERS: ATTEND Family Medicine
DX: R05.9 Cough, unspecified (principal); Z85.05 Personal history of malignant neoplasm of liver
CPT/HCPCS: 71046